=== PATIENT | female | born 1990 | race African-American/Black ===

== ENCOUNTER 2018-12-17 17:20 | Emergency (ER) | payer OTHER, SELFPAY ==
[2018-12-17 17:36] VITALS: BP 104/72; PULSE 70; RESP 16; TEMP 36.4; O2SAT 100
--- NOTE | 2018-12-17 17:58 | W.ED.GENAD ---
Discharge Plan Disposition Patient Disposition: HOME Condition: Stable Discharge Details Chief Complaint: Dizzy/Sync Clinical Impression: Dehydration, Tension headache ED Provider: Alec Garcia Home Meds and New Rx's Prescriptions: No Action Women's Multivitamin 18 mg iron-400 mcg-500 mg Tablet 1 tab PO DAILY RF: 0 Discharge Instructions Instructions: Tension Headache (ED) Additional Instructions: Drink fluids to stay hydrated If you develop worsening symptoms, have new symptoms such as weakness on one side or difficulty breathing return to the emergency department Medical Decision Making 28 yo female who denies any chronic medical problems, drug use or alcohol use, comes in with a day of intermittent frontal headaches and feeling lightheaded. Denies any loc, falls or fevers. She has no focal neuro deficits on exam and CN II-XII are intact. She has steady gait. She has had a right ear ringing as well with normal ear exam. I suspect tension headache but given the lightheaded feeling I felt ct and cta should be done but pt is declining this at this time despite my recommendations to rule out life threatening pathology such as dissection and she has capacity to make her own decisions. No findings to suggest cavernous sinus thrombosis or cerebral venous thrombosis. Pain is slowly worsening so doubt sah. Has no fevers and no meningismus so doubt election watcher infection at this time. She is willing to have labs done to eval for anemia and possible electrolyte abnormalities. Normal ecg and no loc so doubt arrythmia pt remains stable, cbc unremarkable, walking around in no distress and feels better after fluids states pressure is gone, could have had mild dehydration. Awaiting metabolic panel bmp unremarkable, remains stable. Feels much better and still not interested in ct imaging. Will d/c home, return precautions given. Has no pcp in the area, placed on f/u list to get set up with one within a few weeks Differential Diagnosis anemia, tension headache, dissection Lab Data Lab results reviewed: Yes I reviewed the patient's lab results. ECG Data Attestation: I personally reviewed and interpreted this ECG (s) as follows: Prior ECG tracings: not available for review Interpretation: sinus rhythm, rate of 70, pr 184, no acute st t wave ischemic changes HPI General Mode of arrival: ambulatory. Date/Time Provider Initiated Documentation: 12/17/18 17:37. Limitations to Documentation: no limitations. Information obtained by: patient. History of Present Illness 28 year old F presents to the emergency department with the chief complaint of headache, described as moderate, Quality is described as aching, and is localized to the head. Patient reports no radiation. Patient started experiencing this day(s) (1) and it has been intermittent. other things that improve symptom(s), (tylenol) No exacerbating factors reported . Patient notes other (lightheaded). Patient did receive the following treatments prior to arrival, none Related Data Home Medications Medication Instructions Recorded Confirmed he-cw-wkiz-FA-Ca carb-vit K 1 tab PO DAILY 12/17/18 12/17/18 [Women's Multivitamin] Allergies Allergy/AdvReac Type Severity Reaction Status Date / Time pineapple Allergy Itching Unverified 12/17/18 17:42 General Stated Complaint: Dizzy/Sync ALMAS: 3 Review of Systems Review of Systems All systems reviewed & are unremarkable except as noted in HPI and below Constitutional Denies chills, Denies fever(s) and Denies weakness Cardiovascular Denies chest pain and Denies dyspnea Respiratory Denies cough and Denies dyspnea Gastrointestinal Denies abdominal pain, Denies nausea and Denies vomiting Neurologic Denies weakness [facility] Social History Smoking/Tobacco Use Status: Never Alcohol Intake: never Drug use: Never Substance use type: does not use Do you feel safe at home: Yes Do you feel safe in your relationship?: Yes Exam Const General: no acute distress Orientation: alert HENMT Head: normal to inspection Ears: external ears normal General nose exam: external nose normal Mouth: moist mucous membranes Eyes General: appearance normal, both eyes and all related structures Neck Neck: normal visual inspection Resp Effort & Inspection: normal respiratory effort and able to speak in complete sentences Cardio Rate: regular rate Skin General skin exam: no rashes or lesions noted Neuro General: alert and oriented x3 Extrem General: normal to inspection Psych Mental Status: mental status grossly normal Course Vital Signs Temperature 36.4 C L 12/17/18 17:36 Pulse 70 12/17/18 17:36 Respiratory Rate 16 12/17/18 17:36 Blood Pressure 104/72 12/17/18 17:36 Pulse Oximetry 100 12/17/18 17:36 Temperature 36.4 C L 12/17/18 17:36 Temperature Source Temporal Artery Scan 12/17/18 17:36 Pulse 70 12/17/18 17:36 Respiratory Rate 16 12/17/18 17:36 Respiratory Effort Non-Labored 12/17/18 17:40 Blood Pressure 104/72 12/17/18 17:36 Blood Pressure Position Supine 12/17/18 17:36 Pulse Oximetry 100 12/17/18 17:36 Oxygen Delivery Method Room Air 12/17/18 17:36 Oxygen Flow Rate 0 12/17/18 17:36 Pain Level 7 12/17/18 17:36
--- NOTE | 2018-12-17 18:01 | ED.GENADUL_ITS ---
Discharge Plan Disposition Patient Disposition: HOME Condition: Stable Discharge Details Chief Complaint: Dizzy/Sync Clinical Impression: Dehydration, Tension headache ED Provider: Alec Garcia Home Meds and New Rx's Prescriptions: No Action Women's Multivitamin 18 mg iron-400 mcg-500 mg Tablet 1 tab PO DAILY RF: 0 Discharge Instructions Instructions: Tension Headache (ED) Additional Instructions: Drink fluids to stay hydrated If you develop worsening symptoms, have new symptoms such as weakness on one side or difficulty breathing return to the emergency department Medical Decision Making 28 yo female who denies any chronic medical problems, drug use or alcohol use, comes in with a day of intermittent frontal headaches and feeling lightheaded. Denies any loc, falls or fevers. She has no focal neuro deficits on exam and CN II-XII are intact. She has steady gait. She has had a right ear ringing as well with normal ear exam. I suspect tension headache but given the lightheaded feeling I felt ct and cta should be done but pt is declining this at this time despite my recommendations to rule out life threatening pathology such as dissection and she has capacity to make her own decisions. No findings to suggest cavernous sinus thrombosis or cerebral venous thrombosis. Pain is slowly worsening so doubt sah. Has no fevers and no meningismus so doubt regulator tester infection at this time. She is willing to have labs done to eval for anemia and possible electrolyte abnormalities. Normal ecg and no loc so doubt arrythmia pt remains stable, cbc unremarkable, walking around in no distress and feels better after fluids states pressure is gone, could have had mild dehydration. Awaiting metabolic panel bmp unremarkable, remains stable. Feels much better and still not interested in ct imaging. Will d/c home, return precautions given. Has no pcp in the area, placed on f/u list to get set up with one within a few weeks Differential Diagnosis anemia, tension headache, dissection Lab Data Lab results reviewed: Yes I reviewed the patient's lab results. ECG Data Attestation: I personally reviewed and interpreted this ECG (s) as follows: Prior ECG tracings: not available for review Interpretation: sinus rhythm, rate of 70, pr 184, no acute st t wave ischemic changes HPI General Mode of arrival: ambulatory . Date/Time Provider Initiated Documentation: 12/17/18 17:37 . Limitations to Documentation: no limitations . Information obtained by: patient . History of Present Illness 28 year old F presents to the emergency department with the chief complaint of headache, described as moderate, Quality is described as aching, and is localized to the head. Patient reports no radiation. Patient started experiencing this day(s) (1) and it has been intermittent. other things that improve symptom(s), (tylenol) No exacerbating factors reported . Patient notes other (lightheaded). Patient did receive the following treatments prior to arrival, none Related Data Home Medications Medication Instructions Recorded Confirmed ku-fk-usmd-FA-Ca carb-vit K 1 tab PO DAILY 12/17/18 12/17/18 [Women's Multivitamin] Allergies Allergy/AdvReac Type Severity Reaction Status Date / Time pineapple Allergy Itching Unverified 12/17/18 17:42 General Stated Complaint: Dizzy/Sync ALMAS: 3 Review of Systems Review of Systems All systems reviewed & are unremarkable except as noted in HPI and below Constitutional Denies chills, Denies fever(s) and Denies weakness Cardiovascular Denies chest pain and Denies dyspnea Respiratory Denies cough and Denies dyspnea Gastrointestinal Denies abdominal pain, Denies nausea and Denies vomiting Neurologic Denies weakness [facility] Social History Smoking/Tobacco Use Status: Never Alcohol Intake: never Drug use: Never Substance use type: does not use Do you feel safe at home: Yes Do you feel safe in your relationship?: Yes Exam Const General: no acute distress Orientation: alert HENMT Head: normal to inspection Ears: external ears normal General nose exam: external nose normal Mouth: moist mucous membranes Eyes General: appearance normal, both eyes and all related structures Neck Neck: normal visual inspection Resp Effort & Inspection: normal respiratory effort and able to speak in complete sentences Cardio Rate: regular rate Skin General skin exam: no rashes or lesions noted Neuro General: alert and oriented x3 Extrem General: normal to inspection Psych Mental Status: mental status grossly normal Course Vital Signs Temperature 36.4 C L 12/17/18 17:36 Pulse 70 12/17/18 17:36 Respiratory Rate 16 12/17/18 17:36 Blood Pressure 104/72 12/17/18 17:36 Pulse Oximetry 100 12/17/18 17:36 Temperature 36.4 C L 12/17/18 17:36 Temperature Source Temporal Artery Scan 12/17/18 17:36 Pulse 70 12/17/18 17:36 Respiratory Rate 16 12/17/18 17:36 Respiratory Effort Non-Labored 12/17/18 17:40 Blood Pressure 104/72 12/17/18 17:36 Blood Pressure Position Supine 12/17/18 17:36 Pulse Oximetry 100 12/17/18 17:36 Oxygen Delivery Method Room Air 12/17/18 17:36 Oxygen Flow Rate 0 12/17/18 17:36 Pain Level 7 12/17/18 17:36
[2018-12-17 18:05] VITALS: BP 104/76; PULSE 68; RESP 14; O2SAT 100
[2018-12-17 18:19] LABS: Bilirubin Negative (Negative); Blood Trace-intact (Negative); Clarity Clear; Glucose Negative (Negative); Ketones Negative (Negative); Leukocyte Esterase Negative (Negative); Nitrite Negative (Negative); Urobilinogen 0.2 EU/dL (Up TO 0.2)
[2018-12-17] MEDS: Normal Saline 1,000 ML 1000 ML IV (18:20)
[2018-12-17] MEDS: Acetaminophen 500 MG TAB 1000 MG PO (18:22)
[2018-12-17 18:25] LABS: Absolute Basophil Count 0.04 k/cumm (0.0-0.2); Absolute Eosinophil Count 0.12 k/cumm (0.0-0.7); Absolute Lymphocyte Count 2.54 k/cumm (1.2-3.4); Absolute Monocyte Count 0.42 k/cumm (0.11-0.7); Absolute Neutrophil Count 3.75 k/cumm (1.2-6.7); Basophils % 0.6; Eosinophils % 1.7; HCT 37.8 % (36.0-46.0); HGB 12.3 g/dL (12.0-15.5); Mean Corp. HGB Concentration 32.5 g/dL (32.0-36.0); Mean Corpuscular Hemoglobin 27.2 pg (27.0-33.0); Mean Corpuscular Volume 83.4 fL (80-95); Mean Platelet Volume 9.3 fL (8.0-11.0); Monocytes % 6.1; Neutrophils % 54.6; Platelet Count 210 x1000/uL (130-400); RBC 4.53 m/cumm (4.00-5.20); RBC Distribution Width 13.6 % (11.7-14.6); White Blood Cell Count 6.87 k/cumm (4.4-10.8)
[2018-12-17 18:27] LABS: Epithelial Cells Rare HPF (Negative); Other Cells Negative (Negative); RBC 0-2 (0-2); WBC Negative HPF (0-5)
[2018-12-17 18:28] LABS: Bacteria Rare HPF (Negative); C & S Indicated? No; Casts Negative LPF (Negative); Crystals Negative HPF (Negative); Mucus Negative (Negative)
[2018-12-17 18:44] VITALS: RESP 14
[2018-12-17 19:37] LABS: Anion Gap 7.6 mmol/L (3-11); BUN 11 mg/dL (7-18); CO2 27.4 mmol/L (21.0-32.0); CREATININE 0.93 mg/dL (0.55-1.02); Calcium 8.3 mg/dL (8.5-10.1); Chloride 105 mmol/L (98-107); Glucose 80 mg/dL (70-100); Potassium 3.7 mmol/L (3.5-5.1); Sodium 140 mmol/L (136-145)
[2018-12-17 19:44] VITALS: BP 95/65; PULSE 60; RESP 14; TEMP 36.9; O2SAT 100
[2018-12-17] MEDS: Normal Saline Flush 10 ML SYR IVP (19:54)
== END 2018-12-17 19:52 | disposition home or self-care (01) ==
LOC: ER 21:10
PROVIDERS: Emergency Provider Emergency Medicine
DX: E86.0 Dehydration (principal); G44.201 Tension-type headache, unspecified, intractable; R42 Dizziness and giddiness
CPT/HCPCS: 36415; 80048; 80053; 93005; 96360; 96361; 99284; 81003; 81015; 83735; 84484; 84703; 85025; 93010; J3490

== ENCOUNTER 2019-03-23 11:18 | Emergency (ER) | payer OTHER, SELFPAY ==
[2019-03-23 11:27] VITALS: BP 115/77; PULSE 80; RESP 16; TEMP 36.6; O2SAT 98
--- NOTE | 2019-03-23 11:39 | ED.GENADUL_ITS ---
Discharge Plan Disposition Patient Disposition: HOME Condition: Improving Discharge Details Chief Complaint: Sorethroat Clinical Impression: Acute pharyngitis Primary Care Provider: None,None ED Provider: Lew Murrell Home Meds and New Rx's Prescriptions: New Cepacol Sore Throat (pablo-men) 15-3.6 mg lozenge 1 harjinder MM Q2H PRN (Reason: sore throat) Qty: 16 RF: 0 Continued Women's Multivitamin 18 mg iron-400 mcg-500 mg Tablet 1 tab PO DAILY RF: 0 Discharge Instructions Instructions: Pharyngitis (ED) Additional Instructions: I have included a copy of your laboratory results including CBC, comprehensive metabolic panel, mono screen and thyroid-stimulating hormone. We will ask our care managers to help you arrange outpatient follow-up to establish primary care. Return to the emergency department for any acute concerns. May use the prescribed Cepacol lozenges for comfort. WBC 7.16 RBC 4.36 Hgb 11.6 L Hct 36.4 MCV 83.5 MCH 26.6 L MCHC 31.9 L RDW 13.5 Plt Count 237 MPV 8.5 Immature Gran % 0.1 Neutrophils % 58.0 Lymphocytes % 33.7 Monocytes % 6.8 Eosinophils % 1.1 Basophils % 0.3 Absolute Neutrophils 4.15 Absolute Lymphocytes 2.41 Absolute Monocytes 0.49 Absolute Eosinophils 0.08 Absolute Basophils 0.02 Sodium 142 Potassium 3.7 Chloride 105 Carbon Dioxide 27.0 Anion Gap 10.0 BUN 8 Creatinine 0.72 Estimated GFR/1.73 m2 >= 60.00 Glucose 79 Calcium 8.9 Total Bilirubin 0.3 AST 13 L ALT 21 Alkaline Phosphatase 67 Total Protein 7.7 Albumin 3.6 TSH 2.17 Monoscreen Negative Medical Decision Making 28-year-old female presents from home stating she has had intermittent episodes of sore throat lasting a few weeks at a time since September. She is worried about a family history of thyroid masses. Her review of systems is reassuring. Her vital signs are normal. Her exam is without evidence of mass. Screening strep swab, mono screen, labs with TSH obtained. The diagnostics are unremarkable. We will ask care management to help patient arrange an outpatient follow-up. She stable for discharge at this time. Will offer Cepacol lozenges for comfort Lab Data Lab results reviewed: Yes I reviewed the patient's lab results. Laboratory Results - last 24 hr 03/23/19 03/23/19 03/23/19 11:55 11:55 11:55 WBC 7.16 RBC 4.36 Hgb 11.6 L Hct 36.4 MCV 83.5 MCH 26.6 L MCHC 31.9 L RDW 13.5 Plt Count 237 MPV 8.5 Immature Gran % 0.1 Neutrophils % 58.0 Lymphocytes % 33.7 Monocytes % 6.8 Eosinophils % 1.1 Basophils % 0.3 Absolute Neutrophils 4.15 Absolute Lymphocytes 2.41 Absolute Monocytes 0.49 Absolute Eosinophils 0.08 Absolute Basophils 0.02 Sodium 142 Potassium 3.7 Chloride 105 Carbon Dioxide 27.0 Anion Gap 10.0 BUN 8 Creatinine 0.72 Estimated GFR/1.73 m2 >= 60.00 Glucose 79 Calcium 8.9 Total Bilirubin 0.3 AST 13 L ALT 21 Alkaline Phosphatase 67 Total Protein 7.7 Albumin 3.6 TSH 2.17 Monoscreen Negative HPI General Mode of arrival: ambulatory . Date/Time Provider Initiated Documentation: 03/23/19 11:21 . Limitations to Documentation: no limitations . Information obtained by: patient . History of Present Illness 28 year old F presents to the emergency department with the chief complaint of Sore throat intermittently on and off since September, described as moderate, and is localized to the neck. Patient reports no radiation. Patient started experiencing this month(s) and it has been intermittent. No relieving factors improve symptom(s), No exacerbating factors reported . Patient notes denies fever/chills and headaches. Patient did receive the following treatments prior to arrival, none Related Data Home Medications Medication Instructions Recorded Confirmed Women's Multivitamin 1 tab PO DAILY 12/17/18 12/17/18 benzocaine-menthol [Cepacol Sore 1 harjinder MM Q2H PRN #16 each 03/23/19 Throat (pablo-men)] Previous Rx's Medication Instructions Recorded benzocaine-menthol [Cepacol Sore 1 harjinder MM Q2H PRN #16 each 03/23/19 Throat (pablo-men)] Allergies Allergy/AdvReac Type Severity Reaction Status Date / Time amoxicillin [From Augmentin] Allergy Mild Skin Rash Unverified 03/23/19 11:31 clavulanic acid Allergy Mild Skin Rash Unverified 03/23/19 11:31 [From Augmentin] pineapple Allergy Itching Unverified 03/23/19 11:31 General Stated Complaint: Sorethroat ALMAS: 4 Review of Systems Review of Systems Family history of thyroid difficulty. No change to voice, no drooling. Able to swallow. Sick systems reviewed and otherwise no PFSH Social History Smoking/Tobacco Use Status: Never Alcohol Intake: never Drug use: Never Substance use type: does not use Do you feel safe at home: Yes Do you feel safe in your relationship?: Yes Exam Narrative Exam Narrative: GEN: awake, alert, oriented 3. Pleasant, well groomed, interactive. HEAD: Normocephalic, atraumatic ENT: Mucous membranes moist, oropharynx unremarkable, External ear exam unremarkable EYES: PERRL, EOMI NECK: Full ROM, no JORGE, no menigismus, oropharynx is erythematous but no asymmetry, no swelling, did not appreciate exudate CHEST/RESP: Nontender, clear to auscultation bilateral, no wheeze/rhonchi/rales CARDIOVASCULAR: RRR, no murmur, rub alondra. 2+ Rad pulse bilateral ABDOMEN: Soft, nontender, no mass. +Bowel sounds EXT: Full ROM, no edema, no rash Neuro: Grossly normal neurologic exam, conversant, interactive. Psych: Speech fluent, thoughts congruent, affect normal Course Vital Signs Temperature 36.6 C 03/23/19 11:27 Pulse 80 03/23/19 11:27 Respiratory Rate 16 03/23/19 11:27 Blood Pressure 115/77 03/23/19 11:27 Pulse Oximetry 98 03/23/19 11:27 Temperature 36.6 C 03/23/19 11:27 Temperature Source Temporal Artery Scan 03/23/19 11:27 Pulse 80 03/23/19 11:27 Respiratory Rate 16 03/23/19 11:27 Respiratory Effort 03/23/19 11:27 Blood Pressure 115/77 03/23/19 11:27 Blood Pressure Position Sitting 03/23/19 11:27 Pulse Oximetry 98 03/23/19 11:27 Oxygen Delivery Method Room Air 03/23/19 11:27 Oxygen Flow Rate 0 03/23/19 11:27 Pain Level 5 03/23/19 11:27
[2019-03-23 12:13] LABS: Abs Immature Grans 0.01 k/cumm (0.0-0.09); Absolute Basophil Count 0.02 k/cumm (0.0-0.2); Absolute Eosinophil Count 0.08 k/cumm (0.0-0.7); Absolute Lymphocyte Count 2.41 k/cumm (1.2-3.4); Absolute Monocyte Count 0.49 k/cumm (0.11-0.7); Absolute Neutrophil Count 4.15 k/cumm (1.2-6.7); Basophils % 0.3; Eosinophils % 1.1; HCT 36.4 % (36.0-46.0); HGB 11.6 g/dL (12.0-15.5); Immature Grans % 0.1; Lymphocytes % 33.7; Mean Corp. HGB Concentration 31.9 g/dL (32.0-36.0); Mean Corpuscular Hemoglobin 26.6 pg (27.0-33.0); Mean Corpuscular Volume 83.5 fL (80-95); Mean Platelet Volume 8.5 fL (8.0-11.0); Monocytes % 6.8; Platelet Count 237 x1000/uL (130-400); RBC 4.36 m/cumm (4.00-5.20); RBC Distribution Width 13.5 % (11.7-14.6); White Blood Cell Count 7.16 k/cumm (4.4-10.8)
[2019-03-23 12:30] LABS: Mono Screening Negative (Negative)
[2019-03-23 12:37] LABS: ALT 21 U/L (12-78); AST 13 U/L (15-37); Albumin 3.6 g/dL (3.4-5.0); Alkaline Phosphatase 67 U/L (46-116); BUN 8 mg/dL (7-18); Bilirubin, Total 0.3 mg/dL (0.2-1.0); CREATININE 0.72 mg/dL (0.55-1.02); Calcium 8.9 mg/dL (8.5-10.1); Chloride 105 mmol/L (98-107); Glucose 79 mg/dL (70-100); Potassium 3.7 mmol/L (3.5-5.1); Sodium 142 mmol/L (136-145); TSH 2.17 uIU/mL (0.36-3.74); Total Protein 7.7 g/dL (6.4-8.2)
== END 2019-03-23 13:02 | disposition home or self-care (01) ==
PROVIDERS: Emergency Provider Emergency Medicine
DX: J02.9 Acute pharyngitis, unspecified (principal)
CPT/HCPCS: 36415; 80053; 87880; 99282; 84443; 85025; 86308; 87081

== ENCOUNTER 2019-09-06 10:54 | Outpatient (REF) | payer OTHER, SELFPAY ==
[2019-09-06 12:00] LABS: HCT 36.3 % (36.0-46.0); HGB 11.6 g/dL (12.0-15.5); Mean Corpuscular Hemoglobin 26.4 pg (27.0-33.0); Mean Corpuscular Volume 82.7 fL (80-95); Mean Platelet Volume 9.1 fL (8.0-11.0); Platelet Count 264 x1000/uL (130-400); RBC 4.39 m/cumm (4.00-5.20); RBC Distribution Width 13.5 % (11.7-14.6); White Blood Cell Count 6.83 k/cumm (4.4-10.8)
[2019-09-06 12:13] LABS: Calculated LDL 102 mg/dL; Cholesterol 163 mg/dL (<200); HDL Cholesterol 45 mg/dL (40-60); Triglyceride 83 mg/dL (<150)
[2019-09-06 15:47] LABS: ALT 16 U/L (14-59); AST 12 U/L (15-37); Albumin 3.6 g/dL (3.4-5.0); Alkaline Phosphatase 64 U/L (46-116); Anion Gap 10.4 mmol/L (3-11); BUN 10 mg/dL (7-18); Bilirubin, Total 0.4 mg/dL (0.2-1.0); CO2 24.6 mmol/L (21.0-32.0); CREATININE 0.78 mg/dL (0.55-1.02); Calcium 8.8 mg/dL (8.5-10.1); Chloride 104 mmol/L (98-107); Glucose 82 mg/dL (74-106); Sodium 139 mmol/L (136-145); Total Protein 7.4 g/dL (6.4-8.2)
== END 2019-09-06 11:14 ==
LOC: NCHCN 10:54
PROVIDERS: Visit Provider Nurse Practitioner
DX: L73.2 Hidradenitis suppurativa (principal); Z13.1 Encounter for screening for diabetes mellitus; Z68.32 Body mass index [BMI] 32.0-32.9, adult
CPT/HCPCS: 80053; 80061; 85027

== ENCOUNTER 2019-09-07 01:34 | Outpatient (CLI) | payer OTHER, SELFPAY ==
--- NOTE | 2019-09-07 08:16 | DI.US_ITS ---
EXAM: US AXILLA RT CLINICAL HISTORY: LUMP, R22.9 TECHNIQUE: Ultrasound performed using standard protocol. COMPARISON: No exams were available for comparison FINDINGS: In the right axilla, there is a tiny 4 x 3 mm anechoic, subcutaneous lesion corresponding to one of t he palpable abnormalities. This is most consistent with a cyst. The lesion is avascular. The second lesion corresponds to a hyperechoic region in the right axilla. This likely represents a lipoma. The area measures 0.8 cm. IMPRESSION: 1. No suspicious mass is seen sonographically. 2. Hyperechoic lesion seen in the right axilla corresponding to a palpable abnormality. Sonographical ly this likely reflects a lipoma.
--- NOTE | 2019-09-07 08:26 | DI.US_ITS ---
EXAM: US AXILLA LT CLINICAL HISTORY: LUMP R22.9 TECHNIQUE: Ultrasound performed using standard protocol. COMPARISON: US AXILLA RT from 09/07/2019 FINDINGS: In the left axilla, there is an irregular, complex fluid collection in the subcutaneous tissues corre sponding to the palpable abnormality. The area measures 0.8 cm. There does appear to be mild increa sed blood flow in the surrounding soft tissues. A small abscess cannot be excluded. No solid mass i s seen. IMPRESSION: 0.8 cm subcutaneous fluid collection corresponding to the palpable abnormality. Abscess cannot be ex cluded.
--- NOTE | 2019-09-07 08:29 | DI.US_ITS ---
EXAM: US UPPER EXTREMITY VENOUS LT CLINICAL HISTORY: ARM PAIN LT, M79.602, ? THROMBOPHLEBITIS. TECHNIQUE: Ultrasound examination of the left upper extremity venous system(s) is performed using gr ayscale, color-flow, and spectral Doppler analysis. COMPARISON: US AXILLA LT from 09/07/2019 FINDINGS: The left internal jugular, axillary, subclavian, cephalic, basilic, and brachial veins are patent wit hout evidence of thrombosis. IMPRESSION: No DVT.
== END 2019-09-07 01:54 ==
PROVIDERS: Visit Provider Nurse Practitioner
DX: R22.31 Localized swelling, mass and lump, right upper limb (principal); D17.21 Benign lipomatous neoplasm of skin and subcutaneous tissue of right arm; M79.602 Pain in left arm
CPT/HCPCS: 76642; 93971

== ENCOUNTER 2020-03-09 03:09 | Outpatient (CLI) | payer OTHER, SELFPAY ==
--- NOTE | 2020-03-09 15:00 | NS.NUTBLAN_ITS ---
Received referral for [facility] for Medical Nutrition Therapy for weight management. Wt today 189 lbs, 5'1 BMI 35. Mariza reports UBW 140 lbs before she had her son (5 years old). Family Hx HTN, obesity. 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 She is a single mother and has no family in area, moved her from [facility] years ago. She is concerned about her weight gain and would like to lose 30 lbs in the next 6 months. Diet record indicates erratic meals, reliance on convenience meals and low protein intake. She has no formal exercise but has started to walk the track at a local school. Intervention: educated Mariza on how to follow a lower carb, higher protein diet with reliance on complex carbs, lean protein and non starchy vegetables. I also encouraged her to walk 10 miles per week on the track or elsewhere as exercise. We discussed meal plans for work and home days that consist of foods that she enjoys. Discussed risks of obesity and how to encourage her son to eat nutrient dense non processed foods at home by avoiding processed foods. Mariza to follow up with health underwriter about questions/food logs. Goal: lose 5 lbs per month Plan: 1500 kcal lower carb, higher protein diet, walk 10 miles per week, follow up 04/06/20 @ 2pm
== END 2020-03-09 03:29 ==
PROVIDERS: Visit Provider Dietitian, Registered
DX: E66.3 Overweight (principal); Z71.3 Dietary counseling and surveillance
CPT/HCPCS: 97802

== ENCOUNTER 2020-06-09 13:37 | Outpatient (CLI) | payer OTHER, SELFPAY ==
--- NOTE | 2020-06-09 12:20 | DI.RAD_ITS ---
EXAM: XR TIB/FIB LT CLINICAL HISTORY: LOWER LEG PAIN M79.669. TECHNIQUE: 2D digital imaging was performed COMPARISON: No exams were available for comparison FINDINGS: BONES: No acute fracture is present. No bony destructive lesion is seen. Visualized portion of knee a nd ankle joints are unremarkable. SOFT TISSUE: Normal. IMPRESSION: Unremarkable radiographs of the left tibia and fibula. DATA REPOSITORY: RADIATION DOSE DELIVERED:
== END 2020-06-09 13:57 ==
PROVIDERS: PCP Nurse Practitioner; Visit Provider Nurse Practitioner Family
DX: M79.662 Pain in left lower leg (principal)
CPT/HCPCS: 73590

== ENCOUNTER 2020-09-19 10:44 | Outpatient (REF) | payer OTHER, SELFPAY ==
--- NOTE | 2020-09-19 10:00 | PAPFT_PTH ---
PATIENT: Mariza Taylor LOC: [facility] U#:[id number] AGE/SX: 30/F ROOM: RE09/19/[address]: Stuart Parisi : 1990 BED: DIS: 09/19/2020 SPEC #: [id number] RECD: 09/19/20 13:03 STATUS: JAIRON RETitus #: [id number] KIRILL: 09/19/20 10:[address]: Stuart Parisi DEPT: [facility] Cytology RECD BY: Kiki Nguyen ENTERED: 09/19/20 13:03 SP TYPE: PAPFT OTHR DR: Kristen Vanessa Tissues: 1 - CX/ENDOCX FOR PAP SMEARS Procedures: PAP THIN PREP/[facility] Screening HPV DNA PROBE Comments: [id number]
== END 2020-09-19 11:04 ==
LOC: NCHCN 10:44
PROVIDERS: PCP Nurse Practitioner; Visit Provider Family Medicine
DX: Z00.00 Encounter for general adult medical examination without abnormal findings (principal); Z12.4 Encounter for screening for malignant neoplasm of cervix; Z11.51 Encounter for screening for human papillomavirus (HPV)
CPT/HCPCS: 88142; 87624

== ENCOUNTER 2020-12-29 04:18 | Outpatient (CLI) | payer OTHER, SELFPAY ==
--- NOTE | 2020-12-29 | DI.US_ITS ---
APPROVED REPORT EXAM: Comprehensive 2D, Doppler, and color-flow Echocardiogram Patient Location: Out-Patient Metal Riveter: Kathy Lacy RDCS (AE) Indications: New RBBB on EKG, HTN Other Information Study Quality: Good Conclusion Normal left ventricular wall thickness and chamber size. Estimated ejection fraction is 60%. Wall mot ion is normal Normal right ventricular size and systolic function. Normal estimated right ventricular systolic pres sure Both atria are normal in size There is no significant valvular disease Wall motion Left Ventricle The left ventricle is normal size. The left ventricular systolic function is normal. The left ventric ular ejection fraction is within the normal range. There is normal left ventricular wall thickness. T here is normal LV segmental wall motion. There is no ventricular septal defect visualized. LVEF is 60 %. Right Ventricle The right ventricle is normal size. The right ventricular systolic function is normal. The RVSP is 24 .7 mmHg. Atria The left atrium size is normal. The right atrium size is normal. The interatrial septum is intact wit h no evidence for an atrial septal defect. Aortic Valve The aortic valve is normal in structure. Aortic valve is trileaflet. There is no aortic valvular sten osis. No aortic regurgitation is present. Mitral Valve The mitral valve is normal in structure. No evidence of mitral valve stenosis. Trace to mild mitral r egurgitation. Tricuspid Valve The tricuspid valve is normal in structure. There is no tricuspid valve stenosis. Trace to mild tricu spid regurgitation. Pulmonic Valve The pulmonary valve is normal in structure. There is no pulmonic valvular stenosis. Trace pulmonic re gurgitation. Great Vessels The aortic root is normal in size. The ascending aorta is normal in size. Aortic arch is normal in ca liber. IVC is normal in size and collapses >50% with inspiration. Pericardium There is no pericardial effusion. 2D Dimensions IVSD d PLAX 0.82 cm F: 0.6-1.0 LV Vol A2C d MOD 78.2 mL LVPW d PLAX 0.87 cm F: 0.6 - 1.0 LV Vol A4C d MOD 99.8 mL LVID d PLAX 4.47 cm F: 3.8 - 5.2 LA vol/ BSA A2C s A-L 25.3 mL/m2 LVDs 2.95 cm F: 2.2 - 3.5 LA vol/ BSA A4C s A-L 31.5 mL/m2 Ao Root d 2.55 cm F: 2.7 - 3.3 LA Vol/ BSA Biplane s A-L 30.7 mL/m2 RA Area A4C 14.27 cm2 LA Area A4C s MOD 20.21 cm2 RA Vol/ BSA A4C s A-L 20.8 mL/m2 LA Area A2C s MOD 16.67 cm2 Ao Asc Diam d 3.08 cm F: 2.3 - 3.1 LV EF A4C MOD 58.7 % LV EF Teichholz 62.1 % LV EF A2C MOD 59.4 % LVEF (Urban's) 59.19 % F: 54 - 74 LV EF Biplane MOD 59.2 % LV Volume 68.53 mL F: 46 - 106 SV 52.43 mL LV Volume Index 37.65 mL/m2 F: 29 - 61 SV Index 28.71 mL/m2 LV Vol Biplane MOD 88.6 mL FS 33.25 % M-Mode TAPSE 2.04 cm (M/F) >1.7 LV Diastology MV E' medial 0.094 (>0.07 m/s) E/A Ratio 1.8 LV E/e MED 8.35 (<14) MV E Vmax 0.79 (0.4-1.3 m/s) MV E' lateral 0.156 (>0.1 m/s) MV A Vmax 0.45 (0.4-1.3 m/s) LV E/e LAT 5.00 (<14) MV E/A Ratio 1.73 MV E/E' medial 8.38 MV E/E' lateral 5.04 Aortic Valve LVOT Area 2.80 cm2 AoV Area Vmax 2.69 cm2 LVOT Vmax 1.32 m/s AoV Area/ BSA (Vmax) 1.47 cm2/m2 LVOT Mean Flaquito. 0.85 m/s RAMO Mean Flaquito. 2.49 cm2 LVOT Peak Grad 7.0 mmHg RAMO Mean Flaquito. Index 1.36 cm2/m2 LVOT Mean Grad 3.4 mmHg LVOT VTI 0.284 m LVOT Diam s 1.85 cm AoV Vmax 1.38 m/s Velocity Ratio 0.95 AoV Mean Flaquito. 0.95 m/s AoV Peak Grad 7.6 mmHg LVOT SV 79.61 mL AoV Mean Grad 4.1 mmHg AoV VTI 0.274 m AoV Area VTI 2.91 cm2 AoV Area/ BSA (VTI) 1.59 cm/m2 Mitral Valve MV DT 180 (160-240 msec) MV PHT 52 msec MV Area PHT 4.21 cm2 MV VTI 0.229 m MV Area VTI 3.48 (4.0-6.0 cm2) Pulmonary Valve PV Vmax 0.96 (0.5-1.5 m/s) RVOT Peak Gr. 1.57 mmHg PV Peak Grad 3.7 mmHg RVOT Mean Gr. 0.75 mmHg PV Mean Grad 2.0 mmHg RVOT VTI 0.128 m PV VTI 0.225 m RVOT Vmax 0.63 m/s Tricuspid Valve TR Peak Grad 21.6 mmHg TR Vmax 2.33 m/s RA Pressure 3.00 mmHg RVSP (TR) 24.7 mmHg
== END 2020-12-29 04:38 ==
PROVIDERS: PCP Nurse Practitioner; Visit Provider Nurse Practitioner Family
DX: I45.19 Other right bundle-branch block (principal); I10 Essential (primary) hypertension
CPT/HCPCS: 93306

== ENCOUNTER 2021-04-30 23:57 | Emergency (ER) | payer OTHER, SELFPAY ==
--- NOTE | 2021-05-01 | RT.EKG_ITS ---
APPROVED REPORT Exam: Resting ECG Reason for Exam: dizzy Patient Location: E HR:68 bpm ECG Measurements Heart Rate 68 AXIS IN 188 P 50 QRSd 100 QRS -3 QT 416 T -8 QTc 444 Conclusion Sinus arrhythmia...V-rate 56- 78, variation>10% Probable left atrial enlargement...P >50mS, <-0.10mV V1 Low voltage, precordial leads...precordial leads <1.0mV Nonspecific T abnormalities, inferior leads...T <-0.10mV, II III aVF Physician: no stemi, unchanged from prior EKG on 12/17/18
[2021-05-01 00:04] VITALS: BP 111/78; PULSE 71; RESP 18; TEMP 36.6; O2SAT 98
[2021-05-01] MEDS: Meclizine 25 MG TAB PO (00:20)
--- NOTE | 2021-05-01 00:45 | ED.GENADUL_ITS ---
Discharge Plan Disposition Patient Disposition: HOME Condition: Good Discharge Details Clinical Impression: Episodic peripheral vertigo Primary Care Provider: Kristen Vanessa ED Provider: Shahram Weldon Home Meds and New Rx's Prescriptions: New meclizine 25 mg tablet 25 mg PO TID Qty: 14 RF: 0 loratadine 10 mg tablet 10 mg PO DAILY Qty: 10 RF: 0 Continued pantoprazole [Protonix] 40 mg tablet,delayed release (DR/EC) 40 mg PO DAILY Qty: 30 RF: 0 clindamycin phosphate 1 % gel 1 applic topical BID RF: 0 Women's Multivitamin 18 mg iron-400 mcg-500 mg Tablet 1 tab PO DAILY RF: 0 Discharge Instructions Instructions: Vertigo (ED) Additional Instructions: At this time your symptoms appear consistent with peripheral vertigo. Please stay well-hydrated, take the meclizine as directed as well as the loratadine to help with the ear fullness sensation. As we discussed together if your symptoms do not improve over the next few days with this medication regiment you will need to follow-up closely with your family doctor for reassessment, we may need to get potential imaging at that stage. If you notice any worsening of your symptoms, or any new symptoms such as vomiting, diarrhea, fever, chills, shortness of breath, chest pain, numbness, weakness, or fainting , please return immediately to the emergency department for reevaluation. Please follow up with your primary care provider as soon as possible for reassessment and reevaluation. As always, it was a pleasure participating in your medical care today. Referrals: Kristen Vanessa [Primary Care Provider] - Medical Decision Making 30-year-old -[place] female with a past medical history of GERD who presents today for evaluation of dizziness. Patient states that about 4 days ago she experienced a fullness sensation in her right ear, as well as a very brief episode of dizziness and lightheadedness. She has no syncope. She did not pass out. 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 It lasted a few minutes and then resolved on its own. She denies any headache or vision changes otherwise. She denies any chest pain or shortness of breath. She denies any symptoms of palpitations. She denies any syncope. Patient denies any new medications. She states that she does drink plenty of fluids throughout the day. She denies any trauma to her pain in the ear. No family history of cancer or brain cancer. No other complaints at this time. Physical exam is relatively unremarkable. Head impulse test is positive to the right suggesting peripheral etiology. No nystagmus noted to speak of. The ear canals are unremarkable, tympanic membranes are unremarkable. Symptoms appear consistent with peripheral vertigo, and at this time appear clinically inconsistent with a central etiology. Neurologic exam is notably normal. Differential at this time is highest for peripheral vertigo etiology, labyrinthitis is also on the differential. Patient feels well now and symptoms are otherwise gone. Cardiac etiology is unlikely. Screening EKG was performed and demonstrates no changes or significant abnormality. No indication for CT imaging of the head emergently at this time as her neurologic exam is normal, her hints exam is unremarkable for central event. Will discharge home with meclizine and loratadine. Meclizine dose was given here. Recommend close follow-up with her PCP. If the patient does not have improvement of her symptoms over the next few days she may require further investigation and potential imaging at that time, however at this time her symptoms are clinically consistent with peripheral etiology. Discussed red flags which to return. I have extensively reviewed the treatment plan and discharge instructions with the patient. I have addressed all patient concerns at this time. The patient was made aware of what symptoms to monitor for that would warrant a return to the emergency department. Discussed the plan with the patient, they demonstrate verbal understanding and agreement with our assessment and plan at this time. The documentation in this chart was dictated using [employer] dictation software. Please excuse any dictation errors. HPI General Date/Time Provider Initiated Documentation: 05/01/21 00:12 . HPI Narrative: 30-year-old -[place] female with a past medical history of GERD who presents today for evaluation of dizziness. Patient states that about 4 days ago she experienced a fullness sensation in her right ear, as well as a very brief episode of dizziness and lightheadedness. She has no syncope. She did not pass out. 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 It lasted a few minutes and then resolved on its own. She denies any headache or vision changes otherwise. She denies any chest pain or shortness of breath. She denies any symptoms of palpitations. She denies any syncope. Patient denies any new medications. She states that she does drink plenty of fluids throughout the day. She denies any trauma to her pain in the ear. No family history of cancer or brain cancer. No other complaints at this time. Related Data Home Medications Medication Instructions Recorded Confirmed Women's Multivitamin 1 tab PO DAILY 12/17/18 05/01/21 clindamycin phosphate 1 % topical 1 applic TOPICAL BID 06/09/20 05/01/21 gel pantoprazole 40 mg tablet,delayed 40 mg PO DAILY #30 tab 01/11/21 05/01/21 release loratadine 10 mg PO DAILY #10 tab 05/01/21 meclizine 25 mg PO TID #14 tab 05/01/21 Previous Rx's Medication Instructions Recorded pantoprazole 40 mg tablet,delayed 40 mg PO DAILY #30 tab 01/11/21 release loratadine 10 mg PO DAILY #10 tab 05/01/21 meclizine 25 mg PO TID #14 tab 05/01/21 Allergies Allergy/AdvReac Type Severity Reaction Status Date / Time sulfamethoxazole Allergy Intermediate rashes, Verified 05/01/21 00:27 [From Bactrim] itching trimethoprim [From Bactrim] Allergy Intermediate rashes, Verified 05/01/21 00:27 itching amoxicillin [From Augmentin] Allergy Mild Skin Rash Unverified 05/01/21 00:27 clavulanic acid Allergy Mild Skin Rash Unverified 05/01/21 00:27 [From Augmentin] pineapple Allergy Itching Unverified 05/01/21 00:27 General Stated Complaint: Dizzy/Sync ALMAS: 3 Review of Systems All systems reviewed & are unremarkable except as noted in HPI and below PFSH Social History Smoking/Tobacco Use Status: Never Smoking risk assessment performed?: Yes Alcohol Intake: never Drug use: Never Substance use type: does not use Do you feel safe at home: Yes Do you feel safe in your relationship?: Yes Exam Narrative Exam Narrative: 1.Const: Well-nourished, Well-developed, appearing stated age 2.Eyes: PERRL, no conjunctival injection, and symmetrical lids. 3.ENT: Atraumatic external nose and ears.dry MM. Neck: Symmetric, trachea midline, No thyromegaly. 4.CVS: +S1/S2, No murmurs or gallops. Peripheral pulses 2+ and equal in all extremities. Brisk capillary refill in all extremities. 5.RESP: Unlabored respiratory effort. Clear to auscultation bilaterally. No wheezes rales or rhonchi 6.GI: Soft, Nontender/Nondistended, No hepatosplenomegaly. No guarding or rebound. 7.MSK: Normocephalic/Atraumatic, Extremities w/o deformity or ttp No cyanosis or clubbing, Normal movement of all extremities 8.Skin: Warm, Dry. No rashes or lesions. 9.Neuro: mold maker plaster II-XII grossly intact. Sensation grossly intact, no focal neurologic deficits. If you notice any worsening of your symptoms, or any new symptoms such as vomiting, diarrhea, fever, chills, shortness of breath, chest pain, numbness, weakness, or fainting , please return immediately to the emergency department for reevaluation. Please follow up with your primary care provider as soon as possible for reassessment and reevaluation. As always, it was a pleasure participating in your medical care today. Cerebellar function testing is normal. The patient demonstrates a normal hints exam with no findings concerning for a central event. No vertical nystagmus. The head impulse test is negative for any significant central abnormality, but does demonstrate abnormality when head is shifted to the right. Normal test of skew. No suggestion of a central cerebellar event. 10.Psych: (AAO) x3. Appropriate mood and affect Course Vital Signs Vital signs: Vital Signs Temperature 36.6 C 05/01/21 00:04 Pulse 71 05/01/21 00:04 Respiratory Rate 18 05/01/21 00:04 Blood Pressure 111/78 05/01/21 00:04 Pulse Oximetry 98 05/01/21 00:04 Temperature 36.6 C 05/01/21 00:04 Temperature Source Skin 05/01/21 00:04 Pulse 71 05/01/21 00:04 Respiratory Rate 18 05/01/21 00:04 Respiratory Effort Non-Labored 05/01/21 00:28 Respiratory Depth Normal 05/01/21 00:28 Respiratory Pattern Normal 05/01/21 00:28 Blood Pressure 111/78 05/01/21 00:04 Blood Pressure Position Sitting 05/01/21 00:04 Pulse Oximetry 98 05/01/21 00:04 Oxygen Delivery Method Room Air 05/01/21 00:04 Oxygen Flow Rate 0 05/01/21 00:04 Pain Level 0 05/01/21 00:20
[2021-05-01 01:04] VITALS: BP 111/78; PULSE 71; RESP 18; TEMP 36.6; O2SAT 98
== END 2021-05-01 01:08 | disposition home or self-care (01) ==
PROVIDERS: Emergency Provider Student in an Organized Health Care Education/Training Program; PCP Nurse Practitioner
DX: H81.391 Other peripheral vertigo, right ear (principal)
CPT/HCPCS: 93005; 99283; 93010

== ENCOUNTER 2021-12-07 00:19 | Outpatient (CLI) | payer OTHER, SELFPAY ==
--- NOTE | 2021-12-07 06:45 | DI.NM_ITS ---
Exam(s) NM HEPATOBILIARY CCK GRP EXAM: NM HEPATOBILIARY CCK GRP CLINICAL HISTORY: diarrhea, epigastric pain,r10.13. TECHNIQUE: Injected dose: 4.7 mCi Tc-99 mebrofenin Initial dynamic images: According to protocol. Post-Gallbladder fillin.4 mcg CCK intravenously. Addition images: According to protocol. COMPARISON: US US ABDOMEN from 02/06/2021 FINDINGS: Normal hepatic transit time. Prompt excretion into the small bowel. Prompt excretion into the gallbladder. The gallbladder ejection fraction is 13 %. IMPRESSION: 1. Decreased gallbladder ejection fraction of 13 %. ([facility] normal CCK ejection fracture is greater th an 40 %.) This can be seen with gallbladder dyskinesia. SN guidelines: Gallbladder visualization should be present by 3 hours. Delayed [id number] aviles sit beyond 60 min raises the suspicion for partial common bile duct (CBD) obstruction. Gallbladder ejection fraction <35% has a good correlation with acalculous disease (i.e., chronic acal culous cholecystitis, cystic duct syndrome, sphincter of Oddi disease).
== END 2021-12-07 00:39 ==
PROVIDERS: PCP Nurse Practitioner; Visit Provider Surgery
DX: R10.13 Epigastric pain (principal); R19.7 Diarrhea, unspecified; K82.8 Other specified diseases of gallbladder
CPT/HCPCS: 78227

== ENCOUNTER 2021-12-27 03:34 | Outpatient (CLI) | payer OTHER, SELFPAY ==
[2021-12-27 10:45] LABS: Abs Immature Grans 0.01 10^3/uL (0.0-0.06); Absolute Basophil Count 0.03 10^3/uL (0.0-0.2); Absolute Eosinophil Count 0.03 10^3/uL (0.0-0.7); Absolute Lymphocyte Count 2.41 10^3/uL (1.2-3.4); Absolute Monocyte Count 0.41 10^3/uL (0.1-0.8); Absolute Neutrophil Count 4.58 10^3/uL (1.2-6.7); Basophils % 0.4; Eosinophils % 0.4; HCT 35.2 % (36.0-46.0); Immature Grans % 0.1; Lymphocytes % 32.3; MCH 26.3 pg (27.0-33.0); MCHC 31.3 % (32.0-36.0); MCV 84 fL (80-95); MPV 7.8 fL (8.0-11.0); Monocytes % 5.5; Neutrophils % 61.3; Platelet Count 214 10^3/uL (130-400); RBC 4.18 10^6/uL (3.93-5.22); RDW-SD 43.4 fL; WBC 7.47 10^3/uL (4.4-10.8)
[2021-12-27 13:06] LABS: ALT 16 U/L (14-59); AST 12 U/L (15-37); Albumin 3.7 g/dL (3.4-5.0); Alkaline Phosphatase 75 U/L (46-116); Anion Gap 9.4 mmol/L (3-11); BUN 8 mg/dL (7-18); Bilirubin, Total 0.6 mg/dL (0.2-1.0); CO2 26.6 mmol/L (21.0-32.0); Calcium 8.6 mg/dL (8.5-10.1); Chloride 106 mmol/L (98-107); Ferritin 27 ng/mL (8-252); Glucose 62 mg/dL (74-106); Sodium 142 mmol/L (136-145); Total Protein 7.4 g/dL (6.4-8.2)
== END 2021-12-27 03:35 | disposition home or self-care (01) ==
LOC: LBO 03:34
PROVIDERS: PCP Physician Assistant; Visit Provider Surgery
DX: D50.0 Iron deficiency anemia secondary to blood loss (chronic) (principal); K21.9 Gastro-esophageal reflux disease without esophagitis; K82.8 Other specified diseases of gallbladder
CPT/HCPCS: 36415; 80053; 82728; 85025

== ENCOUNTER 2022-02-20 12:14 | Outpatient (REF) | payer OTHER, SELFPAY ==
[2022-02-20 15:33] LABS: HCT 36.9 % (36.0-46.0); MCH 26.7 pg (27.0-33.0); MCHC 32.5 % (32.0-36.0); MCV 82 fL (80-95); MPV 9.2 fL (8.0-11.0); Platelet Count 264 10^3/uL (130-400); RDW 13.3 % (11.7-14.6); RDW-SD 40.1 fL; WBC 8.82 10^3/uL (4.4-10.8)
[2022-02-20 16:15] LABS: Hemoglobin A1C 5.9 % (<5.7)
[2022-02-20 16:26] LABS: Anion Gap 7.2 mmol/L (3-11); BUN 9 mg/dL (7-18); CO2 27.8 mmol/L (21.0-32.0); CREATININE 0.7 mg/dL (0.55-1.02); Calcium 8.6 mg/dL (8.5-10.1); Chloride 103 mmol/L (98-107); Glucose 85 mg/dL (74-106); Potassium 3.6 mmol/L (3.5-5.1); Sodium 138 mmol/L (136-145)
[2022-02-20 16:33] LABS: HCG Quant, Pregnancy < 1 mIU/mL (1-3)
== END 2022-02-20 12:15 | disposition home or self-care (01) ==
LOC: NCHCN 12:14
PROVIDERS: PCP Physician Assistant; Visit Provider Physician Assistant
DX: N93.8 Other specified abnormal uterine and vaginal bleeding (principal); R42 Dizziness and giddiness; Z13.1 Encounter for screening for diabetes mellitus
CPT/HCPCS: 80048; 85027; 83036; 84702; 84703

== ENCOUNTER 2022-08-06 05:14 | Emergency (ER) | payer OTHER, SELFPAY ==
--- NOTE | 2022-08-06 05:15 | RT.EKG_ITS ---
APPROVED REPORT Exam: Resting ECG Reason for Exam: chest pain Patient Location: E HR:99 bpm ECG Measurements Heart Rate 99 AXIS LA 173 P 46 QRSd 90 QRS -4 QT 343 T 17 QTc 440 Conclusion Incomplete analysis due to missing data in precordial lead(s) Sinus rhythm...normal P axis, V-rate 60- 99 Borderline T abnormalities, diffuse leads...T flat/neg I have reviewed and interpreted ECG and agree with software generated interpretation.
[2022-08-06 05:17] VITALS: BP 126/77; PULSE 115; RESP 22; TEMP 39.3; O2SAT 99
--- NOTE | 2022-08-06 05:40 | ED.GENADUL_ITS ---
Discharge Plan Disposition Patient Disposition: Home Condition: Good Discharge Details Clinical Impression: Type A influenza Primary Care Provider: Tk Gomez ED Provider: Shahram Weldon Home Meds and New Rx's Prescriptions: New benzonatate 100 mg capsule 100 mg PO TID Qty: 30 0RF oseltamivir [Tamiflu] 75 mg capsule 75 mg PO BID 5 Days Qty: 10 0RF No Action fluticasone propionate [Flonase Allergy Relief] 50 mcg/actuation spray,suspension 1 spray intranasal DAILY Rx Instructions: administer into each nostril minocycline 100 mg capsule 100 mg PO DAILY clindamycin HCl 300 mg capsule 300 mg PO TID Qty: 30 0RF pantoprazole 40 mg tablet,delayed release (DR/EC) 40 mg PO DAILY clindamycin phosphate 1 % gel 1 applic topical BID loratadine 10 mg tablet 10 mg PO DAILY Qty: 10 0RF Women's Multivitamin 18 mg iron-400 mcg-500 mg Tablet 1 tab PO DAILY Discharge Instructions Instructions: Influenza (ED) Additional Instructions: At this time you have influenza A. This is what is causing here fever, chills and fatigue. Please continue to stay well-hydrated, take Tylenol and Motrin as needed for fever. Thankfully there is no current evidence of pneumonia clinically or on the ultrasound. If you have continued cough that does not improve then you may need reassessment for potential future development of pneumonia. If you notice any worsening of your symptoms, or any new symptoms such as vomiting, diarrhea, fever, chills, shortness of breath, chest pain, numbness, weakness, or fainting , please return immediately to the emergency department for reevaluation. Please follow up with your primary care provider as soon as possible for reassessment and reevaluation. As always, it was a pleasure participating in your medical care today. Referrals: Tk Gomez [Primary Care Provider] - Medical Decision Making This is a very pleasant 32-year-old female with a past medical history of C- sections, reflux, who presents today for evaluation of feeling unwell. Patient states that she has a sick child at home, and then on Friday which was 4 days ago she developed mild cough, sore throat, runny nose, chills and congestion. Her symptoms have continued since then. She denies any vomiting or diarrhea. She has been taking Tylenol and NyQuil to help. She did have an antigen based flu and COVID and strep test yesterday, these were negative but she was afebrile then. She did develop a fever today while coming to work. No other complaints at this time. No difficulty swallowing or drinking. She has admitted to a change in her voice secondary to the mild sore throat. Exam demonstrates a well-appearing but very tired appearing female, lungs are clear, mild tachycardia, she is febrile. EKG shows no evidence of significant abnormality. Differential is highest for influenza or COVID or RSV. Posterior oropharynx shows no evidence of tonsillitis. Bedside limited ultrasound shows no evidence of infiltrate or B-lines to suggest pneumonia. We will gently rehydrate, check for flu COVID RSV, give Toradol, monitor closely and reassess. 6:19 AM Laboratory work-up stable and otherwise unremarkable aside for the patient being influenza type a positive. Hemodynamic stability is noted. No signs of sepsis clinically. No evidence of pneumonia. Patient is no longer a candidate for Tamiflu as she has had over 4 days of symptoms so far and Tamiflu would no longer be effective. I did discuss this with the patient and patient would still like to try it anyway. Discussed risk and benefits of this. Prescription will be sent to the patient's pharmacy. recommend continued NSAIDs and fluids at home. Discussed red flags for which to return. I have extensively reviewed the treatment plan and discharge instructions with the patient. I have addressed all patient concerns at this time. The patient was made aware of what symptoms to monitor for that would warrant a return to the emergency department. Discussed the plan with the patient, they demonstrate verbal understanding and agreement with our assessment and plan at this time. The documentation in this chart was dictated using [email or web address] dictation software. Please excuse any dictation errors. Sign Out No HPI General Date/Time Provider Initiated Documentation: 08/06/22 05:26 . HPI Narrative: This is a very pleasant 32-year-old female with a past medical history of C- sections, reflux, who presents today for evaluation of feeling unwell. Patient states that she has a sick child at home, and then on Friday which was 4 days ago she developed mild cough, sore throat, runny nose, chills and congestion. Her symptoms have continued since then. She denies any vomiting or diarrhea. She has been taking Tylenol and NyQuil to help. She did have an antigen based flu and COVID and strep test yesterday, these were negative but she was afebrile then. She did develop a fever today while coming to work. No other complaints at this time. No difficulty swallowing or drinking. She has admitted to a change in her voice secondary to the mild sore throat. Related Data Home Medications Medication Instructions Recorded Confirmed [id number] carb-vit K 1 tab PO DAILY 12/17/18 06/25/22 18 mg iron-400 mcg-500 mg tablet (Women's Multivitamin) clindamycin phosphate 1 % topical 1 applic topical BID 06/09/20 06/25/22 gel loratadine 10 mg tablet 10 mg PO DAILY #10 tabs 05/01/21 06/25/22 fluticasone propionate 50 1 spray intranasal DAILY 05/16/21 06/25/22 mcg/actuation nasal spray,suspension (Flonase Allergy Relief) pantoprazole 40 mg tablet,delayed 40 mg PO DAILY 12/20/21 06/25/22 release clindamycin HCl 300 mg capsule 300 mg PO TID #30 caps 06/25/22 06/25/22 minocycline 100 mg capsule 100 mg PO DAILY 06/25/22 06/25/22 benzonatate 100 mg capsule 100 mg PO TID #30 caps 08/06/22 oseltamivir 75 mg capsule (Tamiflu) 75 mg PO BID 5 days #10 caps 08/06/22 Previous Rx's Medication Instructions Recorded loratadine 10 mg tablet 10 mg PO DAILY #10 tabs 05/01/21 clindamycin HCl 300 mg capsule 300 mg PO TID #30 caps 06/25/22 benzonatate 100 mg capsule 100 mg PO TID #30 caps 08/06/22 oseltamivir 75 mg capsule (Tamiflu) 75 mg PO BID 5 days #10 caps 08/06/22 Allergies Allergy/AdvReac Type Severity Reaction Status Date / Time sulfamethoxazole Allergy Intermediate rashes, Verified 06/25/22 09:59 [From Bactrim] itching trimethoprim [From Bactrim] Allergy Intermediate rashes, Verified 06/25/22 09:59 itching amoxicillin [From Augmentin] Allergy Mild Skin Rash Unverified 06/25/22 09:59 clavulanic acid Allergy Mild Skin Rash Unverified 06/25/22 09:59 [From Augmentin] pineapple Allergy Itching Unverified 06/25/22 09:59 General Stated Complaint: Fever ALMAS: 3 Review of Systems All systems reviewed & are unremarkable except as noted in HPI and below PFSH All Active Problems (Updated 08/06/22 @ 06:17 by Shahram Weldon DO) Type A influenza (Acute) Oral lesion (Acute) Biliary dyskinesia (Acute) Iron deficiency anemia due to chronic blood loss (Acute) Dizziness (Acute) Ear fullness (Acute) Tinnitus, right (Acute) Hidradenitis suppurativa (Acute) Incomplete right bundle branch block (Acute) Abnormal finding on EKG (Acute) Eustachian tube dysfunction (Acute) Tinnitus (Acute) Episodic peripheral vertigo (Acute) Diarrhea (Acute) Back pain (Acute) Epigastric pain (Acute) Hidradenitis (Acute) Acne vulgaris (Acute) GERD (gastroesophageal reflux disease) (Chronic) Encounter for screening for other viral diseases (Acute) Surgical History History of 2014 Family History Father Diabetes Hypertension Mother Hypertension Maternal Aunt Thyroid disease Social History Smoking/Tobacco Use Status: Never Smoking risk assessment performed?: Yes Alcohol Intake: never Drug use: Never Substance use type: does not use Number of Children: 1 Pets and animals: Yes Pets and animals: other Details: Rabbit Do you feel safe at home: Yes Do you feel safe in your relationship?: Yes Exam Narrative Exam Narrative: 1.Const: Well-nourished, Well-developed, appearing stated age 2.Eyes: PERRL, no conjunctival injection, and symmetrical lids. 3.ENT: Atraumatic external nose and ears. Dry MM. Neck: Symmetric, trachea midline, No thyromegaly. 4.CVS: +S1/S2, No murmurs or gallops. Peripheral pulses 2+ and equal in all extr emities. Brisk capillary refill in all extremities. 5.RESP: Unlabored respiratory effort. Clear to auscultation bilaterally. No wheezes rales or rhonchi 6.GI: Soft, Nontender/Nondistended, No hepatosplenomegaly. No guarding or rebound. 7.MSK: Normocephalic/Atraumatic, Extremities w/o deformity or ttp No cyanosis or clubbing, Normal movement of all extremities 8.Skin: Warm, Dry. No rashes or lesions. 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 Sensation grossly intact, no focal neurologic deficits. 10.Psych: (AAO) x3. Appropriate mood and affect Course Vital Signs Vital signs: Vital Signs Temperature 39.3 C H 08/06/22 05:17 Pulse 115 H 08/06/22 05:17 Respiratory Rate 22 08/06/22 05:17 Blood Pressure 126/77 08/06/22 05:17 Pulse Oximetry 99 08/06/22 05:17 Temperature 39.3 C H 08/06/22 05:17 Pulse 115 H 08/06/22 05:17 Respiratory Rate 22 08/06/22 05:17 Respiratory Effort 08/06/22 05:22 Blood Pressure 126/77 08/06/22 05:17 Blood Pressure Position Sitting 08/06/22 05:17 Pulse Oximetry 99 08/06/22 05:17 Oxygen Delivery Method Room Air 08/06/22 05:17 Oxygen Flow Rate 0 08/06/22 05:17 Pain Level 4 08/06/22 05:17 Lab/Test Results Lab/Test Results: 08/06/22 05:30 Tonsil - Not Specified Group A Streptococcus Culture - Pending
[2022-08-06 05:47] LABS: Abs Immature Grans 0.01 10^3/uL (0.0-0.06); Absolute Basophil Count 0.02 10^3/uL (0.0-0.2); Absolute Eosinophil Count 0.05 10^3/uL (0.0-0.7); Absolute Lymphocyte Count 0.82 10^3/uL (1.2-3.4); Absolute Monocyte Count 0.68 10^3/uL (0.1-0.8); Absolute Neutrophil Count 4.84 10^3/uL (1.2-6.7); Basophils % 0.3; Eosinophils % 0.8; HCT 34.2 % (36.0-46.0); HGB 10.7 g/dL (11.2-15.7); Immature Grans % 0.2; Lymphocytes % 12.8; MCH 25.7 pg (27.0-33.0); MCHC 31.3 % (32.0-36.0); MCV 82 fL (80-95); MPV 8.5 fL (8.0-11.0); Monocytes % 10.6; Neutrophils % 75.3; Platelet Count 215 10^3/uL (130-400); RBC 4.16 10^6/uL (3.93-5.22); RDW 13.8 % (11.7-14.6); RDW-SD 41.5 fL; WBC 6.42 10^3/uL (4.4-10.8)
[2022-08-06] MEDS: Ketorolac 15 MG/ML VIAL IVP (05:49)
[2022-08-06] MEDS: Normal Saline 1,000 ML 1000 ML IV (05:49)
[2022-08-06 06:07] LABS: COVID-19 PCR Negative (Negative); Influenza A PCR Positive (Negative); Influenza B PCR Negative (Negative); RSV PCR Negative (Negative)
[2022-08-06 06:09] LABS: Source Nasopharynx
[2022-08-06 06:14] LABS: ALT 56 U/L (14-59); AST 31 U/L (15-37); Albumin 3.8 g/dL (3.4-5.0); Alkaline Phosphatase 71 U/L (46-116); Anion Gap 10.2 mmol/L (3-11); BUN 8 mg/dL (7-18); Bilirubin, Total 0.2 mg/dL (0.2-1.0); CO2 25.8 mmol/L (21.0-32.0); CREATININE 0.9 mg/dL (0.55-1.02); Calcium 9.1 mg/dL (8.5-10.1); Chloride 101 mmol/L (98-107); Estimated GFR 86.57 (mL/min/1.73m2); Glucose 129 mg/dL (74-106); Potassium 3.6 mmol/L (3.5-5.1); Sodium 137 mmol/L (136-145); Total Protein 7.6 g/dL (6.4-8.2)
== END 2022-08-06 07:15 | disposition home or self-care (01) ==
PROVIDERS: Emergency Provider Student in an Organized Health Care Education/Training Program; PCP Physician Assistant
DX: J10.1 Influenza due to other identified influenza virus with other respiratory manifestations (principal); Z20.822 Contact with and (suspected) exposure to COVID-19
CPT/HCPCS: 36415; 80053; 87637; 93005; 96361; 96374; 99284; 85025; 87081; 93010; J1885

== ENCOUNTER 2023-01-13 12:53 | Emergency (ER) | payer OTHER, SELFPAY ==
[2023-01-13 13:02] VITALS: BP 128/71; PULSE 72; RESP 18; TEMP 37.2; O2SAT 100
--- NOTE | 2023-01-13 14:31 | DI.US_ITS ---
Exam(s) US ABDOMEN LIMITED EXAM: US ABDOMEN LIMITED CLINICAL HISTORY: ruq ultrasound. ?cholecystitis TECHNIQUE: Ultrasound abdomen performed using standard protocol. COMPARISON: US US ABDOMEN from 02/06/2021 FINDINGS: PANCREAS: Normal where visualized. LIVER: Normal. Hepatopedal flow in the Portal Vein. The liver measures in 16.5 cm length. GALLBLADDER: No evidence of cholelithiasis. No evidence of wall thickening. No pericholecystic fluid identified. BILIARY SYSTEM: Common bile duct measures < 7 mm. No intrahepatic biliary ductal dilation. MCDONALD'S SIGN: Negative. RIGHT KIDNEY: Kidney is normal in size. No evidence of renal calculi. No evidence of hydronephrosis. No renal mass or cyst identified. ASCITES: None seen. IMPRESSION: Normal sonographic appearance of the upper abdomen. DATA REPOSITORY:
--- NOTE | 2023-01-13 14:34 | W.ED.GENAD ---
Discharge Plan Disposition Patient Disposition: Home Discharge Details Clinical Impression: Abdominal pain, epigastric, Gastritis Primary Care Provider: Tk Gomez ED Provider: Yoandy Garcia Home Meds and New Rx's Prescriptions: New pantoprazole 40 mg tablet,delayed release (DR/EC) 40 mg PO DAILY 30 Days Qty: 30 2RF Continued fluticasone propionate [Flonase Allergy Relief] 50 mcg/actuation spray,suspension 1 spray intranasal DAILY Rx Instructions: administer into each nostril minocycline 100 mg capsule 100 mg PO DAILY pantoprazole 40 mg tablet,delayed release (DR/EC) 40 mg PO DAILY Patient Comments: Pt states ran out of meds clindamycin phosphate 1 % gel 1 applic topical BID loratadine 10 mg tablet 10 mg PO DAILY Qty: 10 0RF Women's Multivitamin 18 mg iron-400 mcg-500 mg Tablet 1 tab PO DAILY Discontinued clindamycin HCl 300 mg capsule 300 mg PO TID Qty: 30 0RF Patient Comments: Pt states no longer taking Discharge Instructions Instructions: Gastritis (ED), Epigastric Pain (ED) Additional Instructions: You were seen in the emergency department for abdominal pain. We performed labs, urine test, and right upper quadrant ultrasound that were unremarkable. Your symptoms are either due to GERD/gastritis which is due to acid production in your stomach or due to your gallbladder. Your ultrasound and labs do not show any sign of gallbladder infection. You should follow-up with your surgeon for elective cholecystectomy. Follow-up with your primary care doctor about your symptoms additionally. Return for worsening pain, high fevers or chills, or intractable nausea or vomiting. Stand Alone Forms: Work Release Referrals: Alida Knight DO [OSTEOPATHIC DOCTOR] - 2 weeks Medical Decision Making 32-year-old female presents with right upper quadrant abdominal pain. Most concerning for cholecystitis or biliary colic and will get right upper quadrant ultrasound to further evaluate. We will get fairly labs to look for signs of hepatitis, pancreatitis, or other biliary disease. Peptic ulcer disease or gastritis/GERD remains on the differential and will give GI cocktail to see if this helps with her symptoms. We will keep n.p.o. and give some IV fluids and nausea medications to see if this helps with her symptoms additionally. No other abdominal tenderness on exam and it is focal in the right upper quadrant so no role for other advanced imaging of the abdomen at this time. No urinary symptoms to suggest UTI but will check urinalysis. Will check . Will await initial testing as above and reevaluate. Imaging Data Radiologic Study: Attestation: I personally reviewed and interpreted this imaging study as follows: Imaging: Ultrasound (ruq) My impression: Unremarkable Radiologist's impression: ruq ultrasound FINDINGS: PANCREAS: Normal where visualized. LIVER: Normal. Hepatopedal flow in the Portal Vein. The liver measures in 16.5 cm length. GALLBLADDER: No evidence of cholelithiasis. No evidence of wall thickening. No pericholecystic fluid identified. BILIARY SYSTEM: Common bile duct measures < 7 mm. No intrahepatic biliary ductal dilation. MCDONALD'S SIGN: Negative. RIGHT KIDNEY: Kidney is normal in size.? No evidence of renal calculi. No evidence of hydronephrosis. No renal mass or cyst identified. ASCITES: None seen. IMPRESSION: Normal sonographic appearance of the upper abdomen. Lab Data Lab results reviewed: Yes I reviewed the patient's lab results. Lab results narrative: Labs are grossly unremarkable Laboratory Tests Range/Units 01/13/23 01/13/23 01/13/23 14:27 14:27 14:50 WBC (4.4-10.8) 10^3/uL 7.21 RBC (3.93-5.22) 10^6/uL 4.69 Hgb (11.2-15.7) g/dL 12.1 Hct (36.0-46.0) % 38.9 MCV (80-95) fL 83 MCH (27.0-33.0) pg 25.8 L MCHC (32.0-36.0) % 31.1 L RDW (11.7-14.6) % 13.8 Plt Count (130-400) 10^3/uL 241 MPV (8.0-11.0) fL 8.1 Immature Gran % 0.3 Neutrophils % 48.2 Lymphocytes % 44.4 Monocytes % 6.0 Eosinophils % 0.8 Basophils % 0.3 Nucleated RBC % (0.0-0.3) % 0.0 Absolute Neutrophils (1.2-6.7) 10^3/uL 3.48 Absolute Lymphocytes (1.2-3.4) 10^3/uL 3.20 Absolute Monocytes (0.1-0.8) 10^3/uL 0.43 Absolute Eosinophils (0.0-0.7) 10^3/uL 0.06 Absolute Basophils (0.0-0.2) 10^3/uL 0.02 Sodium (136-145) mmol/L 138 Potassium (3.5-5.1) mmol/L 3.7 Chloride (98-107) mmol/L 103 Carbon Dioxide (21.0-32.0) mmol/L 28.5 Anion Gap (3-11) mmol/L 6.5 BUN (7-18) mg/dL 10 Creatinine (0.55-1.02) mg/dL 0.9 Est GFR (CKD-EPI 2020) (mL/min/1.73m2) 86.57 Glucose (74-106) mg/dL 73 L Calcium (8.5-10.1) mg/dL 8.9 Total Bilirubin (0.2-1.0) mg/dL 0.3 AST (15-37) U/L 15 ALT (14-59) U/L 19 Alkaline Phosphatase (46-116) U/L 77 Total Protein (6.4-8.2) g/dL 8.6 H Albumin (3.4-5.0) g/dL 3.8 Lipase (16-77) U/L 43 Urine Color (Yellow) Yellow Urine Clarity (Clear) Clear Urine pH (5-8) 7.0 Ur Specific [place] (1.005-1.025) 1.025 Urine Protein (Negative) mg/dL Negative Urine Ketones (Negative) mg/dL Negative Urine Blood (Negative) Negative Urine Nitrite (Negative) Negative Urine Bilirubin (Negative) Negative Urine Urobilinogen (Up to 0.2) mg/dL 0.2 Ur Leukocyte Esterase (Negative) Negative Urine Glucose (Negative) mg/dL Negative HPI General Date/Time Provider Initiated Documentation: 01/13/23 13:10. Limitations to Documentation: no limitations. Information obtained by: patient. HPI Narrative: 32-year-old female previously healthy presents with right upper quadrant abdominal pain. Says is getting worse over the last week. Says she had similar symptoms about a year ago and got a full work-up including a HIDA scan with surgery. Had signs of gallbladder dysfunction with an abnormal HIDA scan and was offered an elective cholecystectomy but patient never followed up with her next appointment. Is supposed to see the surgeon in about a month. She had been doing well for a while until about a week ago when she developed this right upper quadrant abdominal pain. Worse with eating. Associated with some nausea. No diarrhea or constipation. No black or bloody stools. No vaginal bleeding or discharge. No urinary symptoms. She went to the urgent care today because she spiked a fever last night but she says that she thinks this is from her hidradenitis suppurativa. Urgent care provider recommended she come here for an ultrasound. Denying any other complaints. Related Data Home Medications Medication Instructions Recorded Confirmed [id number]-Ca carb-vit K 1 tab PO DAILY 12/17/18 01/13/23 18 mg iron-400 mcg-500 mg tablet (Women's Multivitamin) clindamycin phosphate 1 % topical 1 applic topical BID 06/09/20 01/13/23 gel loratadine 10 mg tablet 10 mg PO DAILY #10 tabs 05/01/21 01/13/23 fluticasone propionate 50 1 spray intranasal DAILY 05/16/21 01/13/23 mcg/actuation nasal spray,suspension (Flonase Allergy Relief) pantoprazole 40 mg tablet,delayed 40 mg PO DAILY 12/20/21 01/13/23 release minocycline 100 mg capsule 100 mg PO DAILY 06/25/22 01/13/23 pantoprazole 40 mg tablet,delayed 40 mg PO DAILY 30 days #30 tabs 01/13/23 release Previous Rx's Medication Instructions Recorded loratadine 10 mg tablet 10 mg PO DAILY #10 tabs 05/01/21 pantoprazole 40 mg tablet,delayed 40 mg PO DAILY 30 days #30 tabs 01/13/23 release Allergies Allergy/AdvReac Type Severity Reaction Status Date / Time sulfamethoxazole Allergy Intermediate rashes, Verified 01/13/23 11:45 [From Bactrim] itching trimethoprim [From Bactrim] Allergy Intermediate rashes, Verified 01/13/23 11:45 itching amoxicillin [From Augmentin] Allergy Mild Skin Rash Unverified 01/13/23 11:45 clavulanic acid Allergy Mild Skin Rash Unverified 01/13/23 11:45 [From Augmentin] pineapple Allergy Itching Unverified 01/13/23 11:45 General Stated Complaint: Abd Prob ALMAS: 3 Review of Systems Constitutional Constitutional: Denies chills, Denies fever(s) and Denies headache(s) Eyes Eyes: Denies change in vision ENT Ears, Nose, Mouth, and Throat: Denies headache(s) and Denies odynophagia Cardiovascular Cardiovascular: Denies chest pain and Denies dyspnea Respiratory Respiratory: Denies dyspnea Gastrointestinal Gastrointestinal: Reports abdominal pain, Denies diarrhea, Reports nausea, Denies odynophagia and Denies vomiting Genitourinary Genitourinary: Denies abnormal vaginal bleeding, Denies hematuria, Denies dysuria, Denies pelvic pain and Denies vaginal discharge Musculoskeletal Musculoskeletal: Denies myalgias Integumentary/Breasts Skin/Breast: Denies changing lesions Neurologic Neurologic: Denies behavioral changes and Denies headache(s) Psychiatric Psychiatric: Denies behavioral changes Endocrine Endocrine: Denies heat intolerance Hematologic/Lymphatic Hematologic/Lymphatic: Denies lymphadenopathy PFSH All Active Problems (Updated 01/13/23 @ 16:36 by Yoandy Garcia MD) Abdominal pain, epigastric (Acute) Gastritis (Acute) Oral lesion (Acute) Biliary dyskinesia (Acute) Iron deficiency anemia due to chronic blood loss (Acute) Dizziness (Acute) Ear fullness (Acute) Tinnitus, right (Acute) Hidradenitis suppurativa (Acute) Incomplete right bundle branch block (Acute) Abnormal finding on EKG (Acute) Eustachian tube dysfunction (Acute) Tinnitus (Acute) Episodic peripheral vertigo (Acute) Diarrhea (Acute) Back pain (Acute) Epigastric pain (Acute) Hidradenitis (Acute) Acne vulgaris (Acute) GERD (gastroesophageal reflux disease) (Chronic) Encounter for screening for other viral diseases (Acute) Surgical History History of 2014 Family History Father Diabetes Hypertension Mother Hypertension Maternal Aunt Thyroid disease Social History Smoking/Tobacco Use Status: Never Smoking risk assessment performed?: Yes Alcohol Intake: never Drug use: Never Substance use type: does not use Number of Children: 1 Pets and animals: Yes Pets and animals: other Details: Rabbit Do you feel safe at home: Yes Do you feel safe in your relationship?: Yes Exam Const General: cooperative Nutritional Appearance: average body habitus Orientation: alert, awake and oriented x3 HENMT Head: normal to inspection Ears: external ears normal Mouth: moist mucous membranes Eyes Pupils: PERRL EOM: EOM intact bilaterally and No nystagmus Neck Neck: full ROM and no tracheal deviation Chest Chest: normal inspection of the chest Resp Auscultation: clear to auscultation bilaterally Cardio Rate: regular rate Rhythm: regular rhythm GI Inspection: normal to inspection Palpation: soft, no guarding and not rigid Other: Mild right upper quadrant abdominal tenderness with no guarding, rigidity, or rebound. No other abdominal tenderness. Otherwise unremarkable abdominal exam. Back/Spine/Pelvis Back: No no CVA tenderness Thoracic/Lumbar Spine: thoracic and lumbar spine normal to inspection Skin General skin exam: no rashes or lesions noted Neuro General: patient alert, patient awake and patient oriented x3 Cranial Nerves: CN's II-XI intact bilaterally, PERRL and no nystagmus Cognition: normal cognition Motor: muscle tone normal throughout and strength 5/5 throughout Sensory Exam: no sensory deficits noted Extrem General: normal to inspection Course Reevaluation(s) Time: 16:30 Reevaluation: Labs grossly unremarkable. Ultrasound right upper quadrant also unremarkable. Patient feels markedly improved after GI cocktail and tolerating p.o. Will give new prescription for pantoprazole. She has follow-up with her primary care doctor and surgeon within the next month. This seems reasonable. Will discharge with return precautions. Vital Signs Vital signs: Vital Signs Temperature 37.2 C 01/13/23 13:02 Pulse 72 01/13/23 13:02 Respiratory Rate 18 01/13/23 13:02 Blood Pressure 128/71 01/13/23 13:02 Pulse Oximetry 100 01/13/23 13:02 Temperature 37.2 C 01/13/23 13:02 Pulse 72 01/13/23 13:02 Respiratory Rate 18 01/13/23 13:02 Respiratory Effort Normal, Non-Labored 01/13/23 13:07 Blood Pressure 128/71 01/13/23 13:02 Blood Pressure Position Sitting 01/13/23 13:02 Pulse Oximetry 100 01/13/23 13:02 Oxygen Delivery Method Room Air 01/13/23 13:02 Oxygen Flow Rate 0 01/13/23 13:02 Pain Level 0 01/13/23 13:02
[2023-01-13 14:40] LABS: Abs Immature Grans 0.02 10^3/uL (0.0-0.06); Absolute Basophil Count 0.02 10^3/uL (0.0-0.2); Absolute Eosinophil Count 0.06 10^3/uL (0.0-0.7); Absolute Monocyte Count 0.43 10^3/uL (0.1-0.8); Absolute Neutrophil Count 3.48 10^3/uL (1.2-6.7); Basophils % 0.3; Eosinophils % 0.8; HCT 38.9 % (36.0-46.0); HGB 12.1 g/dL (11.2-15.7); Immature Grans % 0.3; Lymphocytes % 44.4; MCH 25.8 pg (27.0-33.0); MCHC 31.1 % (32.0-36.0); MCV 83 fL (80-95); MPV 8.1 fL (8.0-11.0); Neutrophils % 48.2; Platelet Count 241 10^3/uL (130-400); RBC 4.69 10^6/uL (3.93-5.22); RDW 13.8 % (11.7-14.6); RDW-SD 41.4 fL; WBC 7.21 10^3/uL (4.4-10.8)
[2023-01-13 14:58] LABS: ALT 19 U/L (14-59); AST 15 U/L (15-37); Albumin 3.8 g/dL (3.4-5.0); Alkaline Phosphatase 77 U/L (46-116); Anion Gap 6.5 mmol/L (3-11); BUN 10 mg/dL (7-18); Bilirubin, Total 0.3 mg/dL (0.2-1.0); CO2 28.5 mmol/L (21.0-32.0); CREATININE 0.9 mg/dL (0.55-1.02); Calcium 8.9 mg/dL (8.5-10.1); Chloride 103 mmol/L (98-107); Estimated GFR 86.57 (mL/min/1.73m2); Glucose 73 mg/dL (74-106); Lipase 43 U/L (16-77); Potassium 3.7 mmol/L (3.5-5.1); Sodium 138 mmol/L (136-145); Total Protein 8.6 g/dL (6.4-8.2)
[2023-01-13] MEDS: Mylanta Suspension 30 ML CUP (15:00)
[2023-01-13] MEDS: Ondansetron 4 MG/2 ML VIAL IVP (15:00)
[2023-01-13] MEDS: Lidocaine 2% Viscous 15 ML CUP (15:00)
[2023-01-13] MEDS: Lactated Ringers 1,000 ML 1000 ML IV (15:01)
[2023-01-13 15:42] LABS: Bilirubin Negative (Negative); Blood Negative (Negative); Clarity Clear (Clear); Glucose Negative (Negative); Ketones Negative (Negative); Leukocyte Esterase Negative (Negative); Nitrite Negative (Negative); Specific Gravity 1.025 (1.005-1.025); Urobilinogen 0.2 mg/dL (Up to 0.2)
[2023-01-13 17:05] VITALS: BP 114/79; PULSE 58; RESP 16; O2SAT 100
== END 2023-01-13 17:08 | disposition home or self-care (01) ==
PROVIDERS: Emergency Provider Student in an Organized Health Care Education/Training Program; PCP Physician Assistant
DX: R10.9 Unspecified abdominal pain (principal); R10.13 Epigastric pain; K29.70 Gastritis, unspecified, without bleeding
CPT/HCPCS: 36415; 80053; 81025; 83690; 96361; 96374; 99284; 76705; 81003; 85025; J2405

== ENCOUNTER 2023-04-14 18:19 | Outpatient (REF) | payer OTHER, SELFPAY ==
[2023-04-14 19:27] LABS: Hemoglobin A1C 5.6 % (<5.7)
== END 2023-04-14 18:20 | disposition home or self-care (01) ==
LOC: NCHCN 18:19
PROVIDERS: PCP Physician Assistant; Visit Provider Physician Assistant
DX: R73.03 Prediabetes (principal)
CPT/HCPCS: 83036

== ENCOUNTER 2023-06-28 15:37 | Outpatient (REF) | payer OTHER, SELFPAY | END 2023-06-28 15:38 | disposition home or self-care (01) | LOC: LBN 15:37 | PROVIDERS: PCP Physician Assistant; Visit Provider Nurse Practitioner Family | DX: Z20.818 Contact with and (suspected) exposure to other bacterial communicable diseases (principal) | CPT/HCPCS: 87070 ==

== ENCOUNTER 2023-07-18 10:13 | Emergency (ER) | payer OTHER, SELFPAY ==
[2023-07-18 10:30] VITALS: BP 134/91; PULSE 87; RESP 15; TEMP 37.1; O2SAT 100
[2023-07-18] MEDS: Lidocaine/Epinephri/Tetracaine Topical Gel 3 ML TP (10:48)
--- NOTE | 2023-07-18 11:13 | ED.GENADUL_ITS ---
Discharge Plan Disposition Patient Disposition: Home Condition: Stable Discharge Details Clinical Impression: Hidradenitis suppurativa of left axilla Primary Care Provider: Tk Gomez ED Provider: Esdras Zabala Home Meds and New Rx's Prescriptions: New clindamycin HCl 150 mg capsule 450 mg PO TID 5 Days Qty: 45 0RF Continued fluticasone propionate [Flonase Allergy Relief] 50 mcg/actuation spray,suspension 1 spray intranasal DAILY Rx Instructions: administer into each nostril minocycline 100 mg capsule 100 mg PO BID pantoprazole 40 mg tablet,delayed release (DR/EC) 40 mg PO DAILY 30 Days Qty: 30 2RF clindamycin phosphate 1 % gel 1 applic topical BID Qty: 60 0RF Women's Multivitamin 18 mg iron-400 mcg-500 mg Tablet 1 tab PO DAILY Discontinued cephalexin 500 mg capsule 500 mg PO QID Qty: 40 0RF Discharge Instructions Instructions: Hidradenitis Suppurativa (ED) Additional Instructions: Please follow-up with general surgery. Please take antibiotic as prescribed. Return to the ER immediately for any worsening or new concerning symptoms. Referrals: Lalo Reinoso MD [ [facility]FF [facility]YSICIAN] - Medical Decision Making 1115--33-year-old female with history of hidradenitis suppurativa here with 1 week of worsening swelling of the left axilla. Patient has been on cephalexin over the past 5 days without improvement. Seen by [facility] today who recommended referral to general surgery. 1214 -- Patient evaluated by [facility] surgeon Dr. Reinoso who recommends discharge with close outpatient followup. Agrees with switching abx to clindamycin. HPI General Mode of arrival: ambulatory . Date/Time Provider Initiated Documentation: 07/18/23 10:15 . Limitations to Documentation: no limitations . Information obtained by: patient . HPI Narrative: 33-year-old female with history of hidradenitis suppurativa, presents with enlarging abscess left axilla. Patient was seen at urgent care on Friday and prescribed cephalexin. She was seen again today at [facility] who felt she needed referral to general surgery. She then presented here with concern that Friday surgical referral would be too far out. She denies associated fever. No significant associated redness to the axilla. Related Data Home Medications Medication Instructions Recorded Confirmed [id number] carb-vit K 1 tab PO DAILY 12/17/18 07/18/23 18 mg iron-400 mcg-500 mg tablet (Women's Multivitamin) fluticasone propionate 50 1 spray intranasal DAILY 05/16/21 07/18/23 mcg/actuation nasal spray,suspension (Flonase Allergy Relief) pantoprazole 40 mg tablet,delayed 40 mg PO DAILY 30 days #30 tabs 01/13/23 07/18/23 release minocycline 100 mg capsule 100 mg PO BID 07/14/23 07/18/23 clindamycin HCl 150 mg capsule 450 mg (3 x 150 mg) PO TID 5 days 07/18/23 #45 caps clindamycin phosphate 1 % topical 1 applic topical BID #60 grams 07/18/23 gel Previous Rx's Medication Instructions Recorded pantoprazole 40 mg tablet,delayed 40 mg PO DAILY 30 days #30 tabs 01/13/23 release clindamycin HCl 150 mg capsule 450 mg (3 x 150 mg) PO TID 5 days 07/18/23 #45 caps clindamycin phosphate 1 % topical 1 applic topical BID #60 grams 07/18/23 gel Allergies Allergy/AdvReac Type Severity Reaction Status Date / Time sulfamethoxazole Allergy Intermediate rashes, Verified 07/18/23 10:32 [From Bactrim] itching trimethoprim [From Bactrim] Allergy Intermediate rashes, Verified 07/18/23 10:32 itching amoxicillin [From Augmentin] Allergy Mild Skin Rash Unverified 07/18/23 10:32 clavulanic acid Allergy Mild Skin Rash Unverified 07/18/23 10:32 [From Augmentin] pineapple Allergy Itching Unverified 07/18/23 10:32 General Stated Complaint: RashLesion ALMAS: 3 Review of Systems All systems reviewed & are unremarkable except as noted in HPI and below Constitutional Constitutional: Denies fever(s) Gastrointestinal Gastrointestinal: Denies abdominal pain Integumentary/Breasts Skin/Breast: Reports as per HPI PFSH All Active Problems (Updated 07/18/23 @ 12:15 by Esdras Zabala MD) Hidradenitis suppurativa of left axilla (Acute) Oral lesion (Acute) Biliary dyskinesia (Acute) Iron deficiency anemia due to chronic blood loss (Acute) Dizziness (Acute) Ear fullness (Acute) Tinnitus, right (Acute) Hidradenitis suppurativa (Acute) Incomplete right bundle branch block (Acute) Abnormal finding on EKG (Acute) Eustachian tube dysfunction (Acute) Tinnitus (Acute) Episodic peripheral vertigo (Acute) Diarrhea (Acute) Back pain (Acute) Epigastric pain (Acute) Hidradenitis (Acute) Acne vulgaris (Acute) GERD (gastroesophageal reflux disease) (Chronic) Encounter for screening for other viral diseases (Acute) Surgical History History of 2014 Family History Father Diabetes Hypertension Mother Hypertension Maternal Aunt Thyroid disease Social History Smoking/Tobacco Use Status: Never Smoking risk assessment performed?: Yes Alcohol Intake: never Drug use: Never Substance use type: does not use Number of Children: 1 Pets and animals: Yes Pets and animals: other Details: Rabbit Do you feel safe at home: Yes Do you feel safe in your relationship?: Yes Exam Const General: cooperative and no acute distress HENMT Mouth: moist mucous membranes Cardio Rate: regular rate Skin Other: Multiple subcutaneous nodules palpated left axilla, 4-5 cm, no significant erythema Extrem General: no edema Course Vital Signs Vital signs: Vital Signs Temperature 37.1 C 07/18/23 10:30 Pulse 87 07/18/23 10:30 Respiratory Rate 15 07/18/23 10:30 Blood Pressure 134/91 H 07/18/23 10:30 Pulse Oximetry 100 07/18/23 10:30 Temperature 37.1 C 07/18/23 10:30 Temperature Source Oral 07/18/23 10:30 Pulse 87 07/18/23 10:30 Respiratory Rate 15 07/18/23 10:30 Respiratory Effort Normal, Non-Labored 07/18/23 10:38 Blood Pressure 134/91 H 07/18/23 10:30 Blood Pressure Position Sitting 07/18/23 10:30 Pulse Oximetry 100 07/18/23 10:30 Oxygen Delivery Method Room Air 07/18/23 10:30 Oxygen Flow Rate 0 07/18/23 10:30 Pain Level 5 07/18/23 10:30
[2023-07-18] MEDS: Clindamycin 150 MG CAP 450 MG PO (12:11)
--- NOTE | 2023-07-18 12:12 | SCONE_ITS ---
Date of service: 07/18/23 Time of Service: 12:13 Assessment and Plan Assessment and plan (1) Hidradenitis suppurativa of left axilla: Status: Acute Assessment and plan: This all seems most consistent with a flareup of hidradenitis. I do not see any systemic signs of infection, or clear areas that would require incision and drainage. We talked about the natural history of hidradenitis, and various treatment options. For now, we will start some clindamycin and give it a few days. If she has no improvement at that time, we can try to add rifampin. My preference is to try to avoid surgical drainage if at all possible to minimize long-term complications. History of Present Illness History of Present Illness Chief Complaint: Left armpit pain Narrative: Mariza is 33 years old. She has a history of hidradenitis. She has undergone incision and drainage of axillary lesions on multiple occasions in the past. Over the past 2 weeks or so, she has noticed increased tenderness and swelling in the left axilla. She was seen at urgent care about minocycline. Her sym ptoms got worse, and on this past Friday, she was switched over to cephalexin. Unfortunately, the swelling has increased through that time, and has become more tender. She came to the emergency department for evaluation. Review of Systems Constitutional Constitutional: Denies fatigue, Denies fever(s), Denies malaise and Denies weakness Eyes Eyes: Reports system reviewed and no additional complaints, except as documented ENT Ears, Nose, Mouth, and Throat: Reports system reviewed and no additional complaints, except as documented Cardiovascular Cardiovascular: Denies chest pain, Denies palpitations and Denies dyspnea Respiratory Respiratory: Denies chest congestion, Denies cough and Denies dyspnea Gastrointestinal Gastrointestinal: Denies abdominal pain Genitourinary Genitourinary: Reports system reviewed and no additional complaints, except as documented Musculoskeletal Musculoskeletal: Reports system reviewed and no additional complaints, except as documented Neurologic Neurologic: Denies weakness Endocrine Endocrine: Denies fatigue and Denies palpitations Hematologic/Lymphatic Hematologic/Lymphatic: Denies easy bleeding and Denies easy bruising PFSH All Active Problems Hidradenitis suppurativa of left axilla (Acute) Oral lesion (Acute) Biliary dyskinesia (Acute) Iron deficiency anemia due to chronic blood loss (Acute) Dizziness (Acute) Ear fullness (Acute) Tinnitus, right (Acute) Hidradenitis suppurativa (Acute) Incomplete right bundle branch block (Acute) Abnormal finding on EKG (Acute) Eustachian tube dysfunction (Acute) Tinnitus (Acute) Episodic peripheral vertigo (Acute) Diarrhea (Acute) Back pain (Acute) Epigastric pain (Acute) Hidradenitis (Acute) Acne vulgaris (Acute) GERD (gastroesophageal reflux disease) (Chronic) Encounter for screening for other viral diseases (Acute) Surgical History History of 2014 Family History Father Diabetes Hypertension Mother Hypertension Maternal Aunt Thyroid disease Social History Smoking/Tobacco Use Status: Never Smoking risk assessment performed?: Yes Alcohol Intake: never Drug use: Never Substance use type: does not use Number of Children: 1 Pets and animals: Yes Pets and animals: other Details: Rabbit Do you feel safe at home: Yes Do you feel safe in your relationship?: Yes Exam Const General: cooperative, healthy appearing and comfortable Extrem Other: There is tenderness and swelling in the left axilla, along the anterior axillary line. There is some surrounding induration. I do not see any sinuses. There is no fluctuance or drainage. Results Last Vital Signs Temp 98.7 F 07/18/23 10:30 Pulse 87 07/18/23 10:30 Resp 15 07/18/23 10:30 BP 134/91 H 07/18/23 10:30 Pulse Ox 100 07/18/23 10:30
== END 2023-07-18 12:31 | disposition home or self-care (01) ==
PROVIDERS: Emergency Provider Student in an Organized Health Care Education/Training Program; PCP Physician Assistant
DX: L73.2 Hidradenitis suppurativa (principal)
CPT/HCPCS: 99283; 99284

== ENCOUNTER 2023-07-31 15:10 | Outpatient (REF) | payer OTHER, SELFPAY | END 2023-07-31 15:11 | disposition home or self-care (01) | LOC: LBN 15:10 | PROVIDERS: PCP Physician Assistant; Visit Provider Surgery | DX: L73.2 Hidradenitis suppurativa (principal) | CPT/HCPCS: 87070; 87205 ==

== ENCOUNTER 2023-08-13 14:07 | Outpatient (REF) | payer OTHER, SELFPAY ==
[2023-08-13 15:40] LABS: Hemoglobin A1C 5.6 % (<5.7)
[2023-08-13 16:12] LABS: ALT 18 U/L (14-59); AST 13 U/L (15-37); Albumin 3.9 g/dL (3.4-5.0); Alkaline Phosphatase 66 U/L (46-116); Anion Gap 8.2 mmol/L (3-11); BUN 11 mg/dL (7-18); Bilirubin, Total 0.3 mg/dL (0.2-1.0); CO2 26.8 mmol/L (21.0-32.0); CREATININE 0.9 mg/dL (0.55-1.02); Calcium 9.5 mg/dL (8.5-10.1); Chloride 105 mmol/L (98-107); Estimated GFR 86.03 (mL/min/1.73m2); Glucose 82 mg/dL (74-106); Potassium 4.6 mmol/L (3.5-5.1); Sodium 140 mmol/L (136-145)
== END 2023-08-13 14:08 | disposition home or self-care (01) ==
LOC: NCHCN 14:07
PROVIDERS: PCP Physician Assistant; Visit Provider Physician Assistant
DX: R73.03 Prediabetes (principal)
CPT/HCPCS: 80053; 83036

== ENCOUNTER 2023-10-30 16:00 | Outpatient (REF) | payer OTHER, SELFPAY | END 2023-10-30 16:01 | disposition home or self-care (01) | LOC: LBN 16:00 | PROVIDERS: PCP Physician Assistant; Visit Provider Physician Assistant Medical | DX: J06.9 Acute upper respiratory infection, unspecified (principal); R07.0 Pain in throat | CPT/HCPCS: 87070 ==

== ENCOUNTER 2023-10-31 09:20 | Emergency (ER) | payer OTHER, SELFPAY ==
[2023-10-31 09:33] VITALS: BP 133/83; PULSE 107; RESP 18; O2SAT 100
[2023-10-31 09:40] VITALS: TEMP 37.5
--- NOTE | 2023-10-31 09:57 | ED.GENADUL_ITS ---
Discharge Plan Disposition Patient Disposition: Home Condition: Good Discharge Details Clinical Impression: URI (upper respiratory infection), Viral illness, Body aches Primary Care Provider: Tk Gomez ED Provider: Polly Morales Home Meds and New Rx's Prescriptions: New ondansetron 4 mg tablet,disintegrating 4 mg PO Q6H PRN (Reason: nausea and vomiting) Qty: 10 0RF Continued fluticasone propionate [Flonase Allergy Relief] 50 mcg/actuation spray,suspension 1 spray intranasal DAILY Rx Instructions: administer into each nostril minocycline 100 mg capsule 100 mg PO BID clindamycin HCl 300 mg capsule 300 mg PO Q12H Qty: 60 0RF Rx Instructions: Take 1 capsule by mouth in the morning, and 1 capsule by mouth in the evening metformin 500 mg tablet 500 mg PO .COMPLEX Qty: 90 2RF Rx Instructions: Take 500 mg once a day for 1 week, then 500 mg twice a day for 1 week, then 500 mg 3 times a day and continue pantoprazole 40 mg tablet,delayed release (DR/EC) 40 mg PO DAILY 30 Days Qty: 30 2RF clindamycin phosphate 1 % gel 1 applic topical BID Qty: 60 0RF Women's Multivitamin 18 mg iron-400 mcg-500 mg Tablet 1 tab PO DAILY Discharge Instructions Instructions: Upper Respiratory Infection (ED), Viral Syndrome (ED) Additional Instructions: Labs are reassuring here today. Your potassium was slightly low, please try to increase this in the diet. As we discussed, your white count is also slightly elevated but this would correlate with you being sick. You are negative for flu and COVID. Please continue with supportive care including increased hydration, Tylenol/ibuprofen. You may use these as directed on packaging. Have also prescribed Zofran in the event you develop recurrent nausea. Am concerned that you got worse today because you were dehydrated, please try to stay on top of your hydration as best as possible. Please follow-up with your primary care in the next 1 to 2 weeks for reevaluation. If you develop any new or worsening symptoms seek care urgently once again. Referrals: Tk Gomez [Primary Care Provider] - [facility] General Date/Time Provider Initiated Documentation: 10/31/23 09:28 . Limitations to Documentation: no limitations . Information obtained by: patient and RN notes reviewed . History of Present Illness 33 year old F presents to the emergency department with the chief complaint of URI, cough, sore throat, body aches, described as moderate, Quality is described as aching (diffuse body aches), Patient started experiencing this day(s) (3) and it has been constant. Medication improves symptom(s), (APAP pr NSAID) No exacerbating factors reported . Patient notes cough, fever/chills, loss of appetite and malaise; denies chest pain, nausea/vomiting, rash and shortness of breath. Patient did receive the following treatments prior to arrival, NSAID Related Data Home Medications Medication Instructions Recorded Confirmed [id number]-FA-Ca carb-vit K 1 tab PO DAILY 12/17/18 10/31/23 18 mg iron-400 mcg-500 mg tablet (Women's Multivitamin) fluticasone propionate 50 1 spray intranasal DAILY 05/16/21 10/31/23 mcg/actuation nasal spray,suspension (Flonase Allergy Relief) pantoprazole 40 mg tablet,delayed 40 mg PO DAILY 30 days #30 tabs 01/13/23 10/31/23 release minocycline 100 mg capsule 100 mg PO BID 07/14/23 10/31/23 clindamycin phosphate 1 % topical 1 applic topical BID #60 grams 07/18/23 10/31/23 gel clindamycin HCl 300 mg capsule 300 mg PO Q12H Hidradenitis 07/23/23 10/31/23 suppurativa #60 caps metformin 500 mg tablet 500 mg PO .COMPLEX #90 tabs 08/06/23 10/31/23 ondansetron 4 mg disintegrating 4 mg PO Q6H PRN nausea and 10/31/23 tablet vomiting #10 tabs Previous Rx's Medication Instructions Recorded pantoprazole 40 mg tablet,delayed 40 mg PO DAILY 30 days #30 tabs 01/13/23 release clindamycin phosphate 1 % topical 1 applic topical BID #60 grams 07/18/23 gel clindamycin HCl 300 mg capsule 300 mg PO Q12H Hidradenitis 07/23/23 suppurativa #60 caps metformin 500 mg tablet 500 mg PO .COMPLEX #90 tabs 08/06/23 ondansetron 4 mg disintegrating 4 mg PO Q6H PRN nausea and 10/31/23 tablet vomiting #10 tabs Allergies Allergy/AdvReac Type Severity Reaction Status Date / Time sulfamethoxazole Allergy Intermediate rashes, Verified 08/06/23 10:34 [From Bactrim] itching trimethoprim [From Bactrim] Allergy Intermediate rashes, Verified 08/06/23 10:34 itching amoxicillin [From Augmentin] Allergy Mild Skin Rash Unverified 08/06/23 10:34 clavulanic acid Allergy Mild Skin Rash Unverified 08/06/23 10:34 [From Augmentin] pineapple Allergy Itching Unverified 08/06/23 10:34 General Stated Complaint: GenMedical ALMAS: 3 Review of Systems Constitutional Constitutional: Reports as per HPI and Denies headache(s) Eyes Eyes: Reports as per HPI, Denies eye discharge and Denies irritation ENT Ears, Nose, Mouth, and Throat: Reports as per HPI and Denies headache(s) Cardiovascular Cardiovascular: Reports as per HPI, Denies chest pain and Denies dyspnea Respiratory Respiratory: Reports as per HPI and Denies dyspnea Gastrointestinal Gastrointestinal: Reports as per HPI, Denies abdominal pain, Denies change in bowel habits and Denies vomiting Integumentary/Breasts Skin/Breast: Reports as per HPI and Denies rash Neurologic Neurologic: Reports as per HPI and Denies headache(s) Exam Const General: cooperative, healthy appearing, comfortable, no acute distress, well developed and well groomed Nutritional Appearance: average body habitus and well nourished Orientation: alert and awake [facility] Head: normal to inspection, normocephalic and atraumatic Ears: hearing grossly normal bilaterally, external ears normal and TM's normal bilaterally General nose exam: external nose normal and nares normal Face and sinus: normal facial exam, sinuses nontender and face symmetric Mouth: oral mucosae normal, lip normal, tongue normal, oropharynx normal and moist mucous membranes Teeth and gingiva: dentition normal Throat: posterior oropharynx abnormal (erythematous), tonsils normal and uvula midline Eyes General: appearance normal, both eyes and all related structures Neck Neck: normal visual inspection, full ROM and no lymphadenopathy Resp Effort & Inspection: normal respiratory effort, able to speak in complete se ntences and no respiratory distress Auscultation: clear to auscultation bilaterally, no rales, no rhonchi and no wheezes Cardio Rate: regular rate Rhythm: regular rhythm Heart Sounds: S1 normal and S2 normal Skin General skin exam: no rashes or lesions noted Neuro General: patient alert and patient awake Cognition: normal cognition Speech: speech normal Gait: normal gait Course Vital Signs Vital signs: Vital Signs Pulse 107 H 10/31/23 09:33 Respiratory Rate 18 10/31/23 09:33 Blood Pressure 133/83 10/31/23 09:33 Pulse Oximetry 100 10/31/23 09:33 Temperature 37.5 C 10/31/23 09:40 Temperature Source Oral 10/31/23 09:40 Pulse 107 H 10/31/23 09:33 Respiratory Rate 18 10/31/23 09:33 Blood Pressure 133/83 10/31/23 09:33 Blood Pressure Position Sitting 10/31/23 09:33 Pulse Oximetry 100 10/31/23 09:33 Oxygen Delivery Method Room Air 10/31/23 09:33 Oxygen Flow Rate 0 10/31/23 09:33 Lab/Test Results Lab/Test Results: 10/31/23 09:54 Tonsil - Not Specified Group A Streptococcus Culture - Pending POC Strep Test-CHRISTINE(Rapid) Start: 10/31/23 09:49 Freq: .Rapid Strep Test Status: Active Protocol: Document 10/31/23 09:55 SUSANNA (Rec: 10/31/23 09:55 SUSANNA [id number]) Strep test-CHRISTINE(Rapid)-POC POC-Strep test-CHRISTINE (Rapid) Negative POC-Strep test-CHRISTINE (Rapid) Negative Medical Decision Making Patient is a pleasant 33-year-old female who presents today with chief complaint of sore throat, body aches, cough x 3 days. States that she has not been eating or drinking anything secondary to the sore throat. Denies any shortness of breath, chest pain. No GI upset. Denies . On exam, patient appears nontoxic. Lungs are clear. She does appear achy. Will give ibuprofen to help discomfort. She has not had any p.o. intake in the past 3 days was noted to be tachycardic, will hydrate the patient and check her electrolytes. Will also check for flu and COVID. Patient does report that she is fully vaccinated Concerned primarily for viral illness. Will check flu/covid. As she has not had any po intake in a few days, will check electrolyte abnormality and hydrate the patient. I do not see need for CXR at this time or other imaging. Labs reviewed, K+ slightly low, she feels better and will increase PO intake. WBC elevate at 12.3, not surprising iwth acute illness. AGain, her exam is not consistent with bacterial illness. She did experience episode of nausea, no emesis. After zofran, ibuprofen and fluids, feeling much improved. Feels ready for d/c. Will continue with supportive care. She reports that she has been sick intermittently since April, will discuss further with PCP. All of her quesitons and concern were addressed, she is in agreement with this plan. Quality:[facility] Health Related Social Needs: No Data to Display [facility] All Active Problems (Updated 10/31/23 @ 12:29 by JOI Kwon) Body aches (Acute) Viral illness (Acute) URI (upper respiratory infection) (Acute) Oral lesion (Acute) Biliary dyskinesia (Acute) Iron deficiency anemia due to chronic blood loss (Acute) Dizziness (Acute) Ear fullness (Acute) Tinnitus, right (Acute) Hidradenitis suppurativa (Acute) Incomplete right bundle branch block (Acute) Abnormal finding on EKG (Acute) Eustachian tube dysfunction (Acute) Tinnitus (Acute) Episodic peripheral vertigo (Acute) Diarrhea (Acute) Back pain (Acute) Epigastric pain (Acute) Hidradenitis (Acute) Acne vulgaris (Acute) GERD (gastroesophageal reflux disease) (Chronic) Encounter for screening for other viral diseases (Acute) Surgical History History of 2014 Family History Father Diabetes Hypertension Mother Hypertension Maternal Aunt Thyroid disease Social History Smoking/Tobacco Use Status: Never Smoking risk assessment performed?: Yes Alcohol Intake: never Drug use: Never Substance use type: does not use Number of Children: 1 Pets and animals: Yes Pets and animals: other Details: Rabbit Do you feel safe at home: Yes Do you feel safe in your relationship?: Yes
[2023-10-31 10:32] LABS: Abs Immature Grans 0.03 10^3/uL (0.0-0.06); Absolute Eosinophil Count 0.01 10^3/uL (0.0-0.7); Absolute Lymphocyte Count 1.77 10^3/uL (1.2-3.4); Absolute Neutrophil Count 9.58 10^3/uL (1.2-6.7); Basophils % 0.2; Eosinophils % 0.1; HCT 36.4 % (36.0-46.0); HGB 11.6 g/dL (11.2-15.7); Immature Grans % 0.2; Lymphocytes % 14.4; MCH 25.6 pg (27.0-33.0); MCHC 31.9 % (32.0-36.0); MCV 80 fL (80-95); MPV 8.5 fL (8.0-11.0); Monocytes % 7.2; Neutrophils % 77.9; Platelet Count 218 10^3/uL (130-400); RBC 4.53 10^6/uL (3.93-5.22); RDW 14.1 % (11.7-14.6); RDW-SD 41.5 fL
[2023-10-31 10:33] LABS: Absolute Basophil Count 0.02 10^3/uL (0.0-0.2); Absolute Monocyte Count 0.89 10^3/uL (0.1-0.8)
[2023-10-31 10:48] LABS: COVID-19 PCR Negative (Negative); Influenza A PCR Negative (Negative); Influenza B PCR Negative (Negative); RSV PCR Negative (Negative)
[2023-10-31 10:49] LABS: Source Nasopharynx
[2023-10-31 11:36] LABS: ALT 24 U/L (14-59); AST 14 U/L (15-37); Albumin 3.4 g/dL (3.4-5.0); Alkaline Phosphatase 64 U/L (46-116); Anion Gap 8.9 mmol/L (3-11); BUN 7 mg/dL (7-18); Bilirubin, Total 0.5 mg/dL (0.2-1.0); CO2 25.1 mmol/L (21.0-32.0); CREATININE 0.9 mg/dL (0.55-1.02); Calcium 8.8 mg/dL (8.5-10.1); Chloride 104 mmol/L (98-107); Estimated GFR 86.03 (mL/min/1.73m2); Glucose 83 mg/dL (74-106); Magnesium 1.8 mg/dL (1.8-2.4); Potassium 3.3 mmol/L (3.5-5.1); Sodium 138 mmol/L (136-145); Total Protein 7.6 g/dL (6.4-8.2)
[2023-10-31 12:36] VITALS: BP 117/77; PULSE 69; TEMP 36.9; O2SAT 100
[2023-10-31] MEDS: Normal Saline 1,000 ML 1000 ML IV (12:52)
[2023-10-31] MEDS: Ibuprofen 600 MG TAB PO (12:52)
[2023-10-31] MEDS: Ondansetron O.D.T. 4 MG TABEF PO (12:53)
== END 2023-10-31 12:41 | disposition home or self-care (01) ==
PROVIDERS: Emergency Provider Physician Assistant; PCP Physician Assistant
DX: J06.9 Acute upper respiratory infection, unspecified (principal); B34.9 Viral infection, unspecified; M79.10 Myalgia, unspecified site
CPT/HCPCS: 36415; 80053; 87637; 87880; 96360; 99284; 83735; 85025; 87081; 99283

== ENCOUNTER 2023-11-19 14:27 | Outpatient (REF) | payer OTHER, SELFPAY ==
[2023-11-19 15:37] LABS: HCT 35.7 % (36.0-46.0); HGB 11.1 g/dL (11.2-15.7); MCH 25.4 pg (27.0-33.0); MCHC 31.1 % (32.0-36.0); MCV 82 fL (80-95); Platelet Count 285 10^3/uL (130-400); RBC 4.37 10^6/uL (3.93-5.22); RDW 13.9 % (11.7-14.6); RDW-SD 41.4 fL; WBC 7.69 10^3/uL (4.4-10.8)
[2023-11-19 16:20] LABS: Mono Screening Negative (Negative)
[2023-11-19 16:34] LABS: ALT 20 U/L (14-59); AST 12 U/L (15-37); Albumin 3.8 g/dL (3.4-5.0); Alkaline Phosphatase 86 U/L (46-116); Anion Gap 10.6 mmol/L (3-11); BUN 12 mg/dL (7-18); Bilirubin, Total 0.3 mg/dL (0.2-1.0); CO2 25.4 mmol/L (21.0-32.0); CREATININE 0.7 mg/dL (0.55-1.02); Calcium 8.8 mg/dL (8.5-10.1); Chloride 104 mmol/L (98-107); Estimated GFR 116.31 (mL/min/1.73m2); Glucose 99 mg/dL (74-106); Potassium 3.7 mmol/L (3.5-5.1); Sodium 140 mmol/L (136-145); Total Protein 7.7 g/dL (6.4-8.2)
== END 2023-11-19 14:28 | disposition home or self-care (01) ==
LOC: NCHCN 14:27
PROVIDERS: PCP Physician Assistant; Visit Provider Physician Assistant
DX: J02.9 Acute pharyngitis, unspecified (principal)
CPT/HCPCS: 80053; 85027; 86308

== ENCOUNTER 2023-12-17 15:28 | Outpatient (REF) | payer OTHER, SELFPAY ==
[2023-12-17 20:06] LABS: ALT 20 U/L (14-59); AST 12 U/L (15-37); Alkaline Phosphatase 79 U/L (46-116); Anion Gap 8.9 mmol/L (3-11); BUN 10 mg/dL (7-18); Bilirubin, Total 0.6 mg/dL (0.2-1.0); CO2 27.1 mmol/L (21.0-32.0); CREATININE 0.8 mg/dL (0.55-1.02); Calcium 9.4 mg/dL (8.5-10.1); Chloride 106 mmol/L (98-107); Estimated GFR 99.09 (mL/min/1.73m2); Ferritin 29 ng/mL (8-252); Glucose 96 mg/dL (74-106); Potassium 3.9 mmol/L (3.5-5.1); Sodium 142 mmol/L (136-145); TSH 1.58 uIU/Ml (0.36-3.74)
[2023-12-18 19:53] LABS: Iron 50 ug/dL (50-170); Total Iron Binding Capacity 379 ug/dL (250-450); Transferrin Sat 13 % (15-50)
== END 2023-12-17 15:29 | disposition home or self-care (01) ==
LOC: NCHCN 15:28
PROVIDERS: PCP Physician Assistant; Visit Provider Student in an Organized Health Care Education/Training Program
DX: R00.2 Palpitations (principal); D64.9 Anemia, unspecified
CPT/HCPCS: 80053; 82728; 83540; 83550; 84439; 84443

== ENCOUNTER 2023-12-22 09:42 | Outpatient (RCR) | payer OTHER, SELFPAY ==
--- NOTE | 2023-12-22 09:45 | HOLTER_ITS ---
APPROVED REPORT Conclusion This is a 48-hour Holter monitor Rhythm throughout was sinus with an average heart rate of 75. Minimum was 55, maximum 109 There were no ventricular or supraventricular dysrhythmias There was no atrial fibrillation, no high-grade AV block, no pauses greater than 3 seconds No symptoms were reported
== END 2023-12-25 15:00 | disposition home or self-care (01) ==
LOC: CARDOPNVT 09:42
PROVIDERS: PCP Physician Assistant; Visit Provider Internal Medicine Cardiovascular Disease
DX: R00.2 Palpitations (principal)
CPT/HCPCS: 93225; 93226

== ENCOUNTER 2024-01-16 19:05 | Emergency (ER) | payer OTHER, SELFPAY ==
--- NOTE | 2024-01-16 19:00 | RT.EKG_ITS ---
APPROVED REPORT Exam: Resting ECG Reason for Exam: chest pain Patient Location: E HR:71 bpm ECG Measurements Heart Rate 71 AXIS AK 197 P 19 QRSd 98 QRS 6 QT 393 T 14 QTc 428 Conclusion Sinus rhythm...normal P axis, V-rate 60- 99 Narrow complex normal sinus rhythm at a rate of 71. Normal axis. Intervals within normal limits. N o ST segment abnormalities. T wave inversions V2 and V3 appear slightly more pronounced compared to prior. Prior dated 2 years ago. No acute injury pattern.
[2024-01-16 19:08] VITALS: BP 158/94; PULSE 77; RESP 18; O2SAT 100
[2024-01-16 19:11] VITALS: TEMP 36.7
--- NOTE | 2024-01-16 19:15 | DI.RAD_ITS ---
Exam(s) XR CHEST 2V PA LATERAL EXAM: XR CHEST 2V PA LATERAL CLINICAL HISTORY: Chest pain. TECHNIQUE: 2D digital imaging was performed. COMPARISON: No exams were available for comparison FINDINGS: 2 views: Heart size is normal. The mediastinum is not widened. Lungs are clear. No infiltrates nor pleural effusions. IMPRESSION: No acute pulmonary findings. DATA REPOSITORY: RADIATION DOSE DELIVERED:
--- NOTE | 2024-01-16 19:17 | ED.GENADUL_ITS ---
Discharge Plan Disposition Patient Disposition: Home Discharge Details Clinical Impression: Chest pain, unspecified Primary Care Provider: Tk Gomez ED Provider: Stuart Marquis Home Meds and New Rx's Prescriptions: Continued fluticasone propionate [Flonase Allergy Relief] 50 mcg/actuation spray,suspension 1 spray intranasal DAILY Qty: 16 12RF Rx Instructions: administer into each nostril pantoprazole 40 mg tablet,delayed release (DR/EC) 40 mg PO DAILY 30 Days Qty: 30 2RF Women's Multivitamin 18 mg iron-400 mcg-500 mg Tablet 1 tab PO DAILY Discharge Instructions Instructions: Chest Pain (ED) Additional Instructions: You are seen in the emergency department for your chest pain. Your blood work and EKG showed no sign of heart attack. Your chest x-ray showed no sign of a pneumonia nor a collapsed lung. Please return to the emergency department if you pass out if you develop any sweating with your chest pain or if you have chest pain worsens. Otherwise please follow-up next week with your primary care provider. For your pain please take medications as follows: 1. Take acetaminophen (Tylenol), 1,000 mg (two 500 mg tabs) every 6 hours [2. Take ibuprofen (Advil), 400 mg every 6 hours.] HPI General Date/Time Provider Initiated Documentation: 01/16/24 19:17 . HPI Narrative: MDM This is an overall very well-appearing normothermic and not tachycardic 33-year-old female with chest pain for which she will undergo cardiac evaluation and two-view chest x-ray. ECG is nonischemic and not meeting criteria for occlusion UT. Based on duration of symptoms we will obtain a single troponin and if this is negative will be reassured against ACS given the patient's lack of risk factors beyond elevated BMI. No vomiting to suggest increased risk for esophageal rupture. No tearing quality to suggest aortic dissection. Soft nontender abdomen so my suspicion for acute cholecystitis and pancreatitis is low. Furthermore patient is not a daily drinker making her lower risk for pancreatitis low. No pain out of proportion to suggest necrotizing soft tissue infection. No rash to chest to suggest zoster. No fevers nor cough so doubt pneumonia. I considered posterior circulation CVA however the patient was having no nystagmus and given resolved dizziness I did not complete a hints exam. No abdominal pain to suggest ruptured AAA. Not hypotensive nor a dialysis patient so my suspicion is low for pericardial effusion. No trauma and equal breath sounds so my suspicion is low for pneumothorax. I considered pulmonary embolism however the patient is PERC negative so I did not send a D- dimer. No wheezes nor prolonged expiratory phase so my suspicion is low for reactive airway disease. Not recently to suggest increased risk for spontaneous coronary artery dissection. Will reassess following labs and imaging. Will treat pain with acetaminophen and ibuprofen. Patient only has risk factors of elevated BMI but no hyperlipidemia hypertension nor diabetes nor any family history of premature coronary artery disease so if troponin is negative I do not feel patient requires stress testing nor primary care follow- up in setting of a nonischemic ECG. 8 PM CBC lacks anemia thrombocytopenia and leukocytosis. Negative troponin. Basic metabolic panel with very mild hypokalemia with serum potassium of 3.4. No ALFREDITO. No hyperglycemia. No anion gap. Negative hCG. Patient is not on a diuretic so she is not at risk for any ongoing potassium losses. Given that she is tolerating p.o. and denies no nausea nor vomiting no indication for potassium repletion. Patient and I discussed return to the ED for any worsening chest pain any syncope or any diaphoresis associated with chest pain. Patient understood h er return indications and was discharged with an empiric trial of expectant outpatient management. HPI This is a 33-year-old female who arrived to the emergency department via private vehicle in the setting of left-sided chest pain. Patient reports that she woke up this morning was initially feeling lightheaded and slightly dizzy. Her dizziness resolved. She subsequently developed a left-sided chest pressure. It radiated up into her neck. She no prior history of similar symptoms. She reports being under considerable stress taking care of her parents and her 9-year-old son. She is not recently . She denies shortness of breath fevers and chills. No vomiting. No history of PE nor DVT. Patient denies routine tobacco, ethanol, and illicits. No family history of premature coronary artery disease. Father did have a myocardial infarction but was in his 70s. Patient denies history of hyperlipidemia diabetes and hypertension. Exam General: Well-appearing in no acute distress speaking in complete sentences. Head: Normocephalic, atraumatic. Eye: Extraocular eye movements intact. No conjunctival injection. No scleral icterus. Ear, nose, mouth, throat: Grossly normal inspection. Normal voice, handling secretions normally. Neck: Trachea midline. Cardiovascular: Well-perfused distal extremities. Regular rate and rhythm Respiratory: Nonlabored respiration. Clear lungs bilaterally. Gastrointestinal: Nondistended abdomen. Soft nontender. Musculoskeletal: No edema. Moving all 4 extremities spontaneously. Skin: Normal for age and race, grossly normal temperature and turgor. No acute rash. Neurologic: Alert and appropriate, no apparent acute deficits. Psychiatric: Mood and manner are appropriate. Grooming and personal hygiene are appropriate. Related Data Home Medications Medication Instructions Recorded Confirmed [id number] carb-vit K 1 tab PO DAILY 12/17/18 01/16/24 18 mg iron-400 mcg-500 mg tablet (Women's Multivitamin) pantoprazole 40 mg tablet,delayed 40 mg PO DAILY 30 days #30 tabs 01/13/23 01/16/24 release fluticasone propionate 50 1 spray intranasal DAILY #16 grams 12/03/23 01/16/24 mcg/actuation nasal spray,suspension (Flonase Allergy Relief) Previous Rx's Medication Instructions Recorded pantoprazole 40 mg tablet,delayed 40 mg PO DAILY 30 days #30 tabs 01/13/23 release fluticasone propionate 50 1 spray intranasal DAILY #16 grams 12/03/23 mcg/actuation nasal spray,suspension (Flonase Allergy Relief) Allergies Allergy/AdvReac Type Severity Reaction Status Date / Time sulfamethoxazole Allergy Intermediate rashes, Verified 01/16/24 19:11 [From Bactrim] itching trimethoprim [From Bactrim] Allergy Intermediate rashes, Verified 01/16/24 19:11 itching amoxicillin [From Augmentin] Allergy Mild Skin Rash Unverified 01/16/24 19:11 clavulanic acid Allergy Mild Skin Rash Unverified 01/16/24 19:11 [From Augmentin] pineapple Allergy Itching Unverified 01/16/24 19:11 General Stated Complaint: Dizzy/Sync ALMAS: 3 Course Vital Signs Vital signs: Vital Signs Pulse 77 01/16/24 19:08 Respiratory Rate 18 01/16/24 19:08 Blood Pressure 158/94 H 01/16/24 19:08 Pulse Oximetry 100 01/16/24 19:08 Temperature 36.7 C 01/16/24 19:11 Temperature Source Skin 01/16/24 19:11 Pulse 77 01/16/24 19:08 Respiratory Rate 18 01/16/24 19:08 Respiratory Effort Normal 01/16/24 19:11 Blood Pressure 158/94 H 01/16/24 19:08 Blood Pressure Position Sitting 01/16/24 19:08 Pulse Oximetry 100 01/16/24 19:08 Oxygen Delivery Method Room Air 01/16/24 19:08 Oxygen Flow Rate 0 01/16/24 19:08 Medical Decision Making Quality:SDOH Health Related Social Needs: No Data to Display PFSH All Active Problems (Updated 01/16/24 @ 19:42 by Stuart Marquis MD) Chest pain, unspecified (Acute) Pharyngitis (Acute) Oral lesion (Acute) Biliary dyskinesia (Acute) Iron deficiency anemia due to chronic blood loss (Acute) Dizziness (Acute) Ear fullness (Acute) Tinnitus, right (Acute) Hidradenitis suppurativa (Acute) Incomplete right bundle branch block (Acute) Abnormal finding on EKG (Acute) Eustachian tube dysfunction (Acute) Tinnitus (Acute) Episodic peripheral vertigo (Acute) Diarrhea (Acute) Back pain (Acute) Epigastric pain (Acute) Hidradenitis (Acute) Acne vulgaris (Acute) GERD (gastroesophageal reflux disease) (Chronic) Encounter for screening for other viral diseases (Acute) Surgical History History of 2014 Family History Father Diabetes Hypertension Mother Hypertension Maternal Aunt Thyroid disease Social History Smoking/Tobacco Use Status: Never Smoking risk assessment performed?: Yes Alcohol Intake: never Drug use: Never Substance use type: does not use Number of Children: 1 Pets and animals: Yes Pets and animals: other Details: Rabbit Do you feel safe at home: Yes Do you feel safe in your relationship?: Yes
[2024-01-16 19:46] LABS: Abs Immature Grans 0.01 10^3/uL (0.0-0.06); Absolute Basophil Count 0.02 10^3/uL (0.0-0.2); Absolute Eosinophil Count 0.03 10^3/uL (0.0-0.7); Absolute Lymphocyte Count 3.03 10^3/uL (1.2-3.4); Absolute Monocyte Count 0.51 10^3/uL (0.1-0.8); Absolute Neutrophil Count 2.67 10^3/uL (1.2-6.7); Basophils % 0.3 %; Eosinophils % 0.5 %; HCT 36.1 % (36.0-46.0); HGB 11.3 g/dL (11.2-15.7); Immature Grans % 0.2 %; Lymphocytes % 48.3 %; MCH 25.7 pg (27.0-33.0); MCHC 31.3 % (32.0-36.0); MCV 82 fL (80-95); MPV 8.5 fL (8.0-11.0); Monocytes % 8.1 %; Neutrophils % 42.6 %; Platelet Count 251 10^3/uL (130-400); RDW 14.1 % (11.7-14.6); RDW-SD 41.9 fL; WBC 6.27 10^3/uL (4.4-10.8)
[2024-01-16 19:57] LABS: HCG Qual (Serum) Negative
[2024-01-16 19:58] LABS: Anion Gap 9.8 mmol/L (3-11); BUN 7 mg/dL (7-18); CO2 27.2 mmol/L (21.0-32.0); CREATININE 0.9 mg/dL (0.55-1.02); Calcium 8.9 mg/dL (8.5-10.1); Chloride 104 mmol/L (98-107); Estimated GFR 86.03 (mL/min/1.73m2); Glucose 103 mg/dL (74-106); Potassium 3.4 mmol/L (3.5-5.1); Sodium 141 mmol/L (136-145)
[2024-01-16 19:59] LABS: Troponin I < 50 ng/L (< or =60)
--- NOTE | 2024-01-16 20:26 | DI.VRAD_ITS ---
PROCEDURE INFORMATION: Exam: XR Chest Exam date and time: 01/16/2024 7:43 PM Age: 33 years old Clinical indication: Chest wall pain; Additional info: Chest pain TECHNIQUE: Imaging protocol: Radiologic exam of the chest. Views: 2 views. COMPARISON: [facility]PAT[facility] 12/07/2021 9:28 AM FINDINGS: Lungs: Unremarkable. No consolidation. Pleural spaces: Unremarkable. No pleural effusion. No pneumothorax. Heart/Mediastinum: Unremarkable. No cardiomegaly. Bones/joints: Unremarkable. IMPRESSION: No acute findings. Dictated and Authenticated by: Spenser Keller MD. Ordering:ASHIA Davidson MD
== END 2024-01-16 20:09 | disposition home or self-care (01) ==
PROVIDERS: Emergency Provider Emergency Medicine; PCP Physician Assistant
DX: R07.9 Chest pain, unspecified (principal); R42 Dizziness and giddiness
CPT/HCPCS: 36415; 80048; 93005; 99285; 71046; 84484; 84703; 85025; 93010; 99284

== ENCOUNTER 2024-02-16 12:01 | Outpatient (CLI) | payer OTHER, SELFPAY ==
--- NOTE | 2024-02-16 12:00 | RT.EKG_ITS ---
APPROVED REPORT Exam: Resting ECG Reason for Exam: PALPITATIONS Patient Location: O HR:52 bpm ECG Measurements Heart Rate 52 AXIS DE 188 P 34 QRSd 111 QRS 14 QT 467 T 26 QTc 435 Conclusion Sinus rhythm...normal P axis, V-rate 50- 99 Borderline T abnormalities, anterior leads...T flat or neg, V2-V4
== END 2024-02-16 12:02 | disposition home or self-care (01) ==
LOC: CARDOPNVT 12:01
PROVIDERS: PCP Physician Assistant; Visit Provider Physician Assistant
DX: R00.2 Palpitations (principal)
CPT/HCPCS: 93005; 93010

== ENCOUNTER 2024-02-16 15:41 | Outpatient (REF) | payer OTHER, SELFPAY ==
[2024-02-16 15:54] LABS: HCT 36.7 % (36.0-46.0); HGB 11.4 g/dL (11.2-15.7); MCH 25.9 pg (27.0-33.0); MCHC 31.1 % (32.0-36.0); MCV 83 fL (80-95); MPV 9.2 fL (8.0-11.0); Platelet Count 292 10^3/uL (130-400); RBC 4.41 10^6/uL (3.93-5.22); RDW 14.5 % (11.7-14.6); RDW-SD 43.8 fL
[2024-02-16 16:24] LABS: Hemoglobin A1C 5.7 % (<5.7)
[2024-02-16 17:15] LABS: ALT 21 U/L (14-59); AST 13 U/L (15-37); Albumin 3.9 g/dL (3.4-5.0); Alkaline Phosphatase 75 U/L (46-116); BUN 6 mg/dL (7-18); Bilirubin, Total 0.38 mg/dL (0.2-1.0); CREATININE 0.9 mg/dL (0.55-1.02); Calcium 9.3 mg/dL (8.5-10.1); Chloride 105 mmol/L (98-107); Estimated GFR 86.03 (mL/min/1.73m2); Ferritin 20 ng/mL (8-252); Glucose 83 mg/dL (74-106); Magnesium 2.1 mg/dL (1.8-2.4); Potassium 3.8 mmol/L (3.5-5.1); Sodium 141 mmol/L (136-145); Total Protein 7.7 g/dL (6.4-8.2)
[2024-02-16 18:23] LABS: Iron 36 ug/dL (50-170); Total Iron Binding Capacity 371 ug/dL (250-450); Transferrin Sat 10 % (15-50)
== END 2024-02-16 15:42 | disposition home or self-care (01) ==
LOC: NCHCN 15:41
PROVIDERS: PCP Physician Assistant; Visit Provider Physician Assistant
DX: I95.1 Orthostatic hypotension (principal); R73.03 Prediabetes; D50.9 Iron deficiency anemia, unspecified
CPT/HCPCS: 80053; 85027; 82728; 83036; 83540; 83550; 83735